=== PATIENT | male | born 1955 ===

== ENCOUNTER 2018-08-12 10:16 | Inpatient (IN) | payer MEDICARE ==
[2018-08-12 10:17] VITALS: BMI 41.9
[2018-08-12] MEDS ORDERED: Albuterol-Ipratrop 3 mg / 0.5 (3 ml) UD IH STA ×3 (10:38→10:39)
[2018-08-12] MEDS ORDERED: Albuterol-Ipratrop 3 mg / 0.5 (3 ml) UD ONE ×2 (10:39→10:53)
--- NOTE | 2018-08-12 10:42 | ED PDOC ---
HPI: CCC, URI, Sore Throat Time Seen by Provider: 08/12/18 10:33 Chief Complaint (Nursing): Cough, Cold, Congestion History Per: Patient Onset/Duration Of Symptoms: Days (3) Current Symptoms Are (Timing): Still Present Associated Symptoms: Chills, Cough. denies: Sputum Severity: Moderate Additional Complaint(s): Non productive cough assoc with congestion, body aches and SOB x 3 days. Has had chills but has not taken temp. Chest pain when coughing. Past Medical History Vital Signs: Last Vital Signs Temp 99.3 F 08/12/18 10:26 Pulse 104 H 08/12/18 10:26 Resp 21 08/12/18 10:26 BP 91/51 L 08/12/18 10:26 Pulse Ox - Medical History PMH: Arthritis, Depression, Diabetes, HTN Denies: Chronic Kidney Disease - Family History Family History: States: Unknown Family Hx - Home Medications Home Medications: Ambulatory Orders Medication Instructions Recorded Aspirin [Ecotrin] 81 mg PO DAILY 08/12/18 Divalproex [Depakote Sprinkles] 125 mg PO DAILY 08/12/18 Ergocalciferol (Vitamin D2) 50,000 unit PO QWK 08/12/18 [Vitamin D2] Furosemide [Lasix] 40 mg PO DAILY 08/12/18 Lisinopril [Zestril] 20 mg PO DAILY 08/12/18 MetFORMIN [glucoPHAGE] 1,000 mg PO BID 08/12/18 Potassium Chloride [K-Dur 20 mEq 20 meq PO DAILY 08/12/18 ER Tab] Rosuvastatin Calcium [Crestor] 10 mg PO HS 08/12/18 SITagliptin [Januvia] 100 mg PO DAILY 08/12/18 Temazepam [Restoril] 30 mg PO HS 08/12/18 Trazodone HCl 150 mg PO HS 08/12/18 amLODIPine [Norvasc] 5 mg PO DAILY 08/12/18 busPIRone [Buspar] 5 mg PO DAILY 08/12/18 clonazePAM [Klonopin] 1.5 mg PO HS 08/12/18 - Allergies Allergies/Adverse Reactions: Allergies Allergy/AdvReac Type Severity Reaction Status Date / Time No Known Allergies Allergy Verified 08/12/18 10:30 Review of Systems ROS Statement: Except As Marked, All Systems Reviewed And Found Negative Constitutional: Positive for: Chills, Malaise Cardiovascular: Positive for: Chest Pain Respiratory: Positive for: Cough, Shortness of Breath, Pleuritic Pain Physical Exam - Reviewed Nursing Documentation Reviewed: Yes Vital Signs Reviewed: Yes - Physical Exam Appears: Positive for: Non-toxic, No Acute Distress Head Exam: Positive for: ATRAUMATIC, NORMAL INSPECTION, NORMOCEPHALIC Skin: Positive for: Normal Color, Warm, DRY Eye Exam: Positive for: EOMI, Normal appearance, PERRL ENT: Positive for: Normal ENT Inspection Neck: Positive for: Normal, Painless ROM Cardiovascular/Chest: Positive for: Regular Rate, Rhythm Respiratory: Positive for: Decreased Breath Sounds, Rhonchi, Wheezing. Negative for: Respiratory Distress Gastrointestinal/Abdominal: Positive for: Normal Exam, Soft Back: Positive for: Normal Inspection Extremity: Positive for: Normal ROM Neurologic/Psych: Positive for: Alert, Oriented - Progress Re-evaluation Time: 11:43 Condition: Improved (Placed on [place] with O2 sat 94-95%) - Critical Care Total Time (In Min): 30 Documented Critical Care: Time excludes all time spent performint seperately billable procedures Medical Decision Making Medical Decision Making: Discussed with Dr. Manzano, Reveiwed xray and clinical status. Can be admitted to telemetry and followed there. Disposition - Clinical Impression Clinical Impression: Pneumonia, Sepsis, Respiratory failure - Patient ED Disposition Is Patient to be Admitted: Yes - Disposition Disposition Time: 11:41 Condition: FAIR Forms: [facility] (Macedonian) - Pt Status Changed To: Hospital Disposition Of: Inpatient - Admit Certification Admit to Inpatient:: After my assessment, the patient will require hospitalization for at least two midnights. This is because of the severity of symptoms shown, intensity of services needed, and/or the medical risk in this patient being treated as an outpatient. - POA Present On Arrival: None
[2018-08-12 11:14] LABS: ABG ALLEN TEST YES; ARTERIAL BLOOD GAS HCO3 23.7 mmol/L (21-28); ARTERIAL BLOOD GAS O2 SAT 87.9 % (95-98); ARTERIAL BLOOD GAS PCO2 72 mm/Hg (35-45); ARTERIAL BLOOD GAS PH 7.21 (7.35-7.45); ARTERIAL BLOOD GAS PO2 52 mm/Hg (80-100)
--- NOTE | 2018-08-12 11:16 | RAD ---
Date of service: 08/12/2018 HISTORY: cough COMPARISON: No prior. FINDINGS: LUNGS: 07/15/2017 extensive left perihilar/basilar and right basilar opacities. Nonspecific. Possible pneumonia or pulmonary edema. PLEURA: No significant pleural effusion identified, no pneumothorax apparent. CARDIOVASCULAR: No aortic atherosclerotic calcification present. Normal cardiac size. No pulmonary vascular congestion. OSSEOUS STRUCTURES: No significant abnormalities. VISUALIZED UPPER ABDOMEN: Normal. OTHER FINDINGS: None. IMPRESSION: Bilateral opacities, nonspecific. Possible pneumonia. Rule out pulmonary edema. Follow-up advised.
[2018-08-12] MEDS ORDERED: Piperacillin/Tazobact 3.375 GM in Sodium Chloride 0.9% 100 ML IVPB STA (11:17)
[2018-08-12] MEDS ORDERED: Sodium Chloride 0.9% 1,000 ML IV STA (11:18)
[2018-08-12] MEDS ORDERED: Vancomycin 1 g Inj ONE (11:22)
[2018-08-12 11:28] LABS: VENOUS BLOOD GAS BASE EXCESS -1.1 mmol/L (0.0-2.0); VENOUS BLOOD GAS PCO2 74 mmHg (40-60); VENOUS BLOOD GAS PO2 48 mm/Hg (30-55)
[2018-08-12 11:29] LABS: BASO % 0.3 % (0.0-2.0); LYMPH # 0.9 K/uL (1.0-4.3); LYMPH % 5.4 % (20.0-40.0); MEAN CELL VOLUME 91.3 fl (80.0-94.0); MEAN CORPUSCULAR HEMOGLOBIN 28.3 pg (27.0-31.0); MEAN PLATELET VOLUME 8.3 fl (7.2-11.7); MONO # 1.5 K/uL (0.0-0.8); MONO % 9.4 % (0.0-10.0); NEUT # 13.7 K/uL (1.8-7.0); NEUT % 84.9 % (50.0-75.0); NRBC % 0.3 % (0.0-0.0); PLATELET COUNT 191 K/uL (130-400); RBC 5.29 Mil/uL (4.40-5.90); RED CELL DISTRIBUTION WIDTH 15.7 % (11.5-14.5); WHITE BLOOD COUNT 16.1 K/uL (4.8-10.8)
--- NOTE | 2018-08-12 11:36 | CARD ---
APPROVED REPORT Date of service: 08/12/2018 EKG Measurement Heart [id number] <Conclusion> Sinus tachycardia Otherwise normal ECG
[2018-08-12 11:43] LABS: ALBUMIN 3.9 g/dL (3.5-5.0); CALCIUM 8.9 mg/dL (8.4-10.2)
--- NOTE | 2018-08-12 12:08 | CP.PCM.HP ---
<Jose Bello - Last Filed: 08/12/18 16:05> History of Present Illness - History of Present Illness History of Present Illness: CC: Cough and weakness 63 Y/O Male with PMHx of HTN, T2DM, Obesity, Depression, Arthritis and CKD. Most of the history is obtained with the help of the patient's grandson and next of dolores due to the patient being on BiPAP and SOB. Patient presented to the ED with c/o cough, weakness, body aches, sujective fever with chills, and difficulty breathing for approximately 3 days. ROS: 12 point system reviwed and found unremarkable except as per HPI. PMD: Dr Kraft. PMHx: HTN, Obesity, CKD, DM, Arthritis. FMHx: Alzheimer's mother and sister PSHx: Knee surgery SocHx: Former Smoker quit 15 years ago, drinks beer every weekend, denies drug use. Next of Dolores: Grandson Rome Cramer [phone] ED Course: VS on presentation BP 91/51, HR 104, T 99.3, O2 Sat 80 to 84, RR 27 Labs: WBC 16.1, Bands % 4, Chem- Creat 1.8 GFR 38, BS 170, ProBNP 3180 ABG: pH 7.2, pCO2- 74, Ox 82.4. EKG: Sinus Tach CXR: b/l opacities IVF NS given in ED BC x 2 done in ED Vanco 1G IV and Zosyn 3.375 mg IVPB BiPAP/CiPAP treatment Duoneb txRx Present on Admission - Present on Admission Any Indicators Present on Admission: No History of DVT/PE: No History of Uncontrolled Diabetes: No Urinary Catheter: No Decubitus Ulcer Present: No Past Patient History - Past Medical History & Family History Past Medical History?: Yes - Past Social History Smoking Status: Never Smoked - CARDIAC Hx Hypertension: Yes - PULMONARY Hx Respiratory Disorders: No - NEUROLOGICAL Hx Neurological Disorder: No - HEENT Hx HEENT Problems: No - RENAL Hx Chronic Kidney Disease: No - ENDOCRINE/METABOLIC Hx Endocrine Disorders: Yes Hx Diabetes Mellitus Type 2: Yes - HEMATOLOGICAL/ONCOLOGICAL Hx Blood Disorders: No - INTEGUMENTARY Hx Dermatological Problems: No - MUSCULOSKELETAL/RHEUMATOLOGICAL Hx Arthritis: Yes - GASTROINTESTINAL Hx Gastrointestinal Disorders: Yes Other/Comment: HEARTBURN - GENITOURINARY/GYNECOLOGICAL Hx Genitourinary Disorders: No - PSYCHIATRIC Hx Depression: Yes - SURGICAL HISTORY Hx Surgeries: Yes Hx Joint Replacement: Yes (right total knee replacement 06/30) Other/Comment: VERICOSE VEIN RIGHT LEG 1986 .ELBOW LEFT - ANESTHESIA Hx Anesthesia: Yes Hx Anesthesia Reactions: No Hx Malignant Hyperthermia: No Meds Allergies/Adverse Reactions: Allergies Allergy/AdvReac Type Severity Reaction Status Date / Time No Known Allergies Allergy Verified 08/12/18 10:30 Physical Exam - Constitutional Appears: In Acute Distress - Head Exam Head Exam: ATRAUMATIC, NORMOCEPHALIC - Eye Exam Eye Exam: EOMI, PERRL - ENT Exam ENT Exam: Mucous Membranes Moist - Respiratory Exam Respiratory Exam: Decreased Breath Sounds, Wheezes - Cardiovascular Exam Cardiovascular Exam: RRR, +S1, +S2 - GI/Abdominal Exam GI & Abdominal Exam: Distended, Normal Bowel Sounds - Extremities Exam Extremities exam: Positive for: pedal edema - Neurological Exam Neurological exam: Alert, CN II-XII Intact - Psychiatric Exam Psychiatric exam: Normal Affect - Skin Skin Exam: Normal Color, Warm Results - Vital Signs Recent Vital Signs: Last Vital Signs Temp 99.3 F 08/12/18 10:26 Pulse 98 H 08/12/18 11:33 Resp 27 H 08/12/18 11:33 BP 125/65 08/12/18 10:40 Pulse Ox 94 L 08/12/18 11:33 - Labs Result Diagrams: 08/12/18 11:20 08/12/18 11:20 Labs: Laboratory Results - last 24 hr 08/12/18 08/12/18 08/12/18 11:00 11:05 11:20 WBC RBC Hgb Hct MCV MCH MCHC RDW Plt Count MPV Neut % (Auto) Lymph % (Auto) Morrow % (Auto) Eos % (Auto) Baso % (Auto) Neut # (Auto) Lymph # (Auto) Morrow # (Auto) Eos # (Auto) Baso # (Auto) pCO2 72 H* pO2 48 52 L HCO3 23.7 ABG pH 7.21 L ABG Total CO2 31.0 H ABG O2 Saturation 87.9 L ABG Base Excess -0.9 Harpreet Test Yes ABG Potassium 4.1 VBG pH 7.20 L VBG pCO2 74 H* VBG HCO3 23.4 VBG Total CO2 31.2 H VBG O2 Sat (Calc) 82.4 H VBG Base Excess -1.1 L VBG Potassium 4.5 A-a O2 Difference 571.0 Sodium 130.0 L 130.0 L 136 Chloride 95.0 L 95.0 L 97 L Glucose 178 H 169 H Lactate 2.8 H 2.1 FiO2 100.0 100.0 Crit Value Called To Abdullahi Roque Crit Value Called By Ellie salas salon shampoo assistant Ellie salon shampoo assistant Crit Value Read Back Y Y Blood Gas Notified Time 1127 1114 Potassium 4.7 Carbon Dioxide 27 Anion Gap 17 BUN 18 Creatinine 1.8 H Est GFR ( Amer) 46 Est GFR (Non-Af Amer) 38 Random Glucose 170 H Calcium 8.9 Total Bilirubin 0.7 AST 167 H D ALT 74 H D Alkaline Phosphatase 72 NT-Pro-B Natriuret Pep 3180 H Total Protein 7.7 Albumin 3.9 Globulin 3.8 Albumin/Globulin Ratio 1.0 Arterial Blood Potassium 4.1 Venous Blood Potassium 4.5 Influenza Typ A,B (EIA) 08/12/18 08/12/18 11:20 11:20 WBC 16.1 H D RBC 5.29 Hgb 15.0 D Hct 48.3 MCV 91.3 D MCH 28.3 MCHC 31.0 L RDW 15.7 H Plt Count 191 D MPV 8.3 Neut % (Auto) 84.9 H Lymph % (Auto) 5.4 L Morrow % (Auto) 9.4 Eos % (Auto) 0.0 Baso % (Auto) 0.3 Neut # (Auto) 13.7 H Lymph # (Auto) 0.9 L Morrow # (Auto) 1.5 H Eos # (Auto) 0.0 Baso # (Auto) 0.0 pCO2 pO2 HCO3 ABG pH ABG Total CO2 ABG O2 Saturation ABG Base Excess Harpreet Test ABG Potassium VBG pH VBG pCO2 VBG HCO3 VBG Total CO2 VBG O2 Sat (Calc) VBG Base Excess VBG Potassium A-a O2 Difference Sodium Chloride Glucose Lactate FiO2 Crit Value Called To Crit Value Called By Crit Value Read Back Blood Gas Notified Time Potassium Carbon Dioxide Anion Gap BUN Creatinine Est GFR ( Amer) Est GFR (Non-Af Amer) Random Glucose Calcium Total Bilirubin AST ALT Alkaline Phosphatase NT-Pro-B Natriuret Pep Total Protein Albumin Globulin Albumin/Globulin Ratio Arterial Blood Potassium Venous Blood Potassium Influenza Typ A,B (EIA) Negative for flu a/b Assessment & Plan - Assessment and Plan (Free Text) Assessment: 63 Y/O Male with PMHx of HTN, T2DM, Obesity, Depression, Arthritis and CKD, presenting to the ED with c/o cough, weakness and SOB for approximately 3 days. Patient was found in the ED to have a leukocytois with bandemia, CXR with b/l infiltrate opacities, hypercapnia and hypoxemia and is admitted with Respiratory failure secondary to PNA. Plan: #. Hypoxic-Hypercapnic Respiratory Failure secondary to PNA - Admit to Tele -CXR done - BiPAP setting IPAP 12, EPAP 6, FIO2 100, Rate 14 - ABG in AM - CBC, CMP in AM - C/w Zosym 3.375 Q6h IV - C/W Vanco IV - Pulmonology consult, Dr Hendricks, Recommendations appreciated - Duoneb unit dose Rx Neb Q6h - Solu-medrol 40 IV Q6 #. Sepsis secondary to PNA - Leukocytosis : WBC 16.1, Bands % 4 - BP 91/51 HR 104 on presentation - CXR done - BC x 2 done, pending results - Sputum culture ordered, f/u results - Procalcitonin, f/u results - Legionella unrine Ag, f/u results - CBC in AM, f/u - c/w Antibx: Zosyn, VAnco - Vanco level in AM #. T2DM -Diabetid diet -HbA1C in AM, F/u -Metformin: Stopped, Creat 1.8 GFR 38 -Januvia:hold -Correction Scale with Lispro insulin ACHS as per protocol #HTN -Norvasc, Lisinopril, LAsix on hold due to hypotension at this time -Echo f/u results #.Obesity -BMI 43.6 #. Renal Injury -Creat 1.8 -Unclear Chronic vs Acute -F/u Chem7 in AM #.Elevated LFTs - AST 167 - ALT 74 -Most likely related to Fatty Liver D vs ETOH abuse -F/u CMP #Depression -c/w Trazodone -Buspar-Hold -Temazepam 30-Hold DVT Prphylaxis Heparin 5000U SC Q12h Code Status Full Code <Resendez,Randell D - Last Filed: 08/12/18 18:39> Results - Vital Signs Recent Vital Signs: Last Vital Signs Temp 98.7 F 08/12/18 15:48 Pulse 96 H 08/12/18 17:00 Resp 18 08/12/18 15:48 BP 97/67 L 08/12/18 15:48 Pulse Ox 95 08/12/18 15:48 - Labs Result Diagrams: 08/12/18 11:20 08/12/18 11:20 Labs: Laboratory Results - last 24 hr 08/12/18 08/12/18 08/12/18 11:00 11:05 11:20 WBC RBC Hgb Hct MCV MCH MCHC RDW Plt Count MPV Neut % (Auto) Lymph % (Auto) Morrow % (Auto) Eos % (Auto) Baso % (Auto) Neut # (Auto) Lymph # (Auto) Morrow # (Auto) Eos # (Auto) Baso # (Auto) Neutrophils % (Manual) Band Neutrophils % Lymphocytes % (Manual) Monocytes % (Manual) Platelet Estimate Anisocytosis (manual) pCO2 72 H* pO2 48 52 L HCO3 23.7 ABG pH 7.21 L ABG Total CO2 31.0 H ABG O2 Saturation 87.9 L ABG Base Excess -0.9 Harpreet Test Yes ABG Potassium 4.1 VBG pH 7.20 L VBG pCO2 74 H* VBG HCO3 23.4 VBG Total CO2 31.2 H VBG O2 Sat (Calc) 82.4 H VBG Base Excess -1.1 L VBG Potassium 4.5 A-a O2 Difference 571.0 Sodium 130.0 L 130.0 L 136 Chloride 95.0 L 95.0 L 97 L Glucose 178 H 169 H Lactate 2.8 H 2.1 FiO2 100.0 100.0 Crit Value Called To Abdullahi Roque Crit Value Called By Ellie salas salon shampoo assistant Ellie salon shampoo assistant Crit Value Read Back Y Y Blood Gas Notified Time 1127 1114 Potassium 4.7 Carbon Dioxide 27 Anion Gap 17 BUN 18 Creatinine 1.8 H Est GFR ( Amer) 46 Est GFR (Non-Af Amer) 38 Random Glucose 170 H Calcium 8.9 Total Bilirubin 0.7 AST 167 H D ALT 74 H D Alkaline Phosphatase 72 NT-Pro-B Natriuret Pep 3180 H Total Protein 7.7 Albumin 3.9 Globulin 3.8 Albumin/Globulin Ratio 1.0 Arterial Blood Potassium 4.1 Venous Blood Potassium 4.5 Influenza Typ A,B (EIA) 08/12/18 08/12/18 11:20 11:20 WBC 16.1 H D RBC 5.29 Hgb 15.0 D Hct 48.3 MCV 91.3 D MCH 28.3 MCHC 31.0 L RDW 15.7 H Plt Count 191 D MPV 8.3 Neut % (Auto) 84.9 H Lymph % (Auto) 5.4 L Morrow % (Auto) 9.4 Eos % (Auto) 0.0 Baso % (Auto) 0.3 Neut # (Auto) 13.7 H Lymph # (Auto) 0.9 L [place]row # (Auto) 1.5 H Eos # (Auto) 0.0 Baso # (Auto) 0.0 Neutrophils % (Manual) 78 H Band Neutrophils % 4 H Lymphocytes % (Manual) 7 L Monocytes % (Manual) 11 H Platelet Estimate Normal Anisocytosis (manual) Slight pCO2 pO2 HCO3 ABG pH ABG Total CO2 ABG O2 Saturation ABG Base Excess Harpreet Test ABG Potassium VBG pH VBG pCO2 VBG HCO3 VBG Total CO2 VBG O2 Sat (Calc) VBG Base Excess VBG Potassium A-a O2 Difference Sodium Chloride Glucose Lactate FiO2 Crit Value Called To Crit Value Called By Crit Value Read Back Blood Gas Notified Time Potassium Carbon Dioxide Anion Gap BUN Creatinine Est GFR ( Amer) Est GFR (Non-Af Amer) Random Glucose Calcium Total Bilirubin AST ALT Alkaline Phosphatase NT-Pro-B Natriuret Pep Total Protein Albumin Globulin Albumin/Globulin Ratio Arterial Blood Potassium Venous Blood Potassium Influenza Typ A,B (EIA) Negative for flu a/b Attending/Attestation - Attestation I have personally seen and examined this patient.: Yes I have fully participated in the care of the patient.: Yes I have reviewed all pertinent clinical information: Yes Notes (Text): 08/12/18 18:38 Patient seen and examined with resident. Case discussed and agreed with assessment and plan of management.
[2018-08-12] MEDS ORDERED: Sodium Chloride 3% for Inhalation 4 ML VIAL.NEB IH PRN (12:12)
[2018-08-12 12:15] LABS: BANDS 4 % (0-2); LYMPHOCYTE 7 % (20-50); MONOCYTE 11 % (0-10); NEUTROPHIL 78 % (42-75); TOTAL CELLS COUNTED 100
[2018-08-12 12:16] LABS: ANISOCYTOSIS SLIGHT; PLATELET ESTIMATE NORMAL (NORMAL)
[2018-08-12] MEDS ORDERED: Dextrose 50% SYRINGE Inj (50 ml) IV PRN (12:27)
[2018-08-12] MEDS ORDERED: Glucagon Recombinant 1 mg Inj IM PRN (12:27)
[2018-08-12] MEDS ORDERED: Piperacillin/Tazobact 3.375 gm Inj IVPB ONE (13:03)
[2018-08-12] MEDS: Albuterol-Ipratrop 3 mg / 0.5 (3 ml) UD INH SCH ×2 (15:42→19:03)
[2018-08-12] MEDS: Piperacillin/Tazobact 3.375 GM in Sodium Chloride 0.9% 100 ML IVPB SCH ×3 (16:03→23:50)
[2018-08-12] MEDS ORDERED: methylPREDNISolone 40 MG in Sodium Chloride 0.9% 50 ML IVPB SCH (17:00)
[2018-08-12] MEDS: Insulin Lispro (humaLOG) 100 Units/ml Inj SC SCH ×2 (18:33→21:36)
[2018-08-12] MEDS: MethylPREDNISolone 40 mg Vial IVP SCH (18:36)
[2018-08-13] MEDS: MethylPREDNISolone 40 mg Vial IVP SCH ×3 (00:04→17:22)
[2018-08-13 05:29] LABS: BASO % 0.1 % (0.0-2.0); HEMOGLOBIN 14.8 g/dL (12.0-18.0); LYMPH # 0.7 K/uL (1.0-4.3); LYMPH % 3.9 % (20.0-40.0); MEAN CELL VOLUME 91.1 fl (80.0-94.0); MEAN CORPUSCULAR HEMOGLOBIN 28.3 pg (27.0-31.0); MEAN CORPUSCULAR HGB CONC 31.1 g/dL (33.0-37.0); MONO # 0.9 K/uL (0.0-0.8); MONO % 5.2 % (0.0-10.0); NEUT # 16.2 K/uL (1.8-7.0); NEUT % 90.8 % (50.0-75.0); NRBC % 0.6 % (0.0-0.0); PLATELET COUNT 166 K/uL (130-400); RBC 5.21 Mil/uL (4.40-5.90); RED CELL DISTRIBUTION WIDTH 15.8 % (11.5-14.5); WHITE BLOOD COUNT 17.9 K/uL (4.8-10.8)
[2018-08-13] MEDS: Piperacillin/Tazobact 3.375 GM in Sodium Chloride 0.9% 100 ML IVPB SCH ×3 (06:06→18:44)
[2018-08-13 06:30] LABS: BANDS 7 % (0-2); LYMPHOCYTE 4 % (20-50); MONOCYTE 2 % (0-10); NEUTROPHIL 87 % (42-75); PLATELET ESTIMATE NORMAL (NORMAL); TOTAL CELLS COUNTED 100
[2018-08-13] MEDS: Insulin Lispro (humaLOG) 100 Units/ml Inj SC SCH ×4 (08:00→22:23)
[2018-08-13] MEDS: Albuterol-Ipratrop 3 mg / 0.5 (3 ml) UD INH SCH ×6 (08:01→23:18)
[2018-08-13 08:26] LABS: ABG ALLEN TEST YES; ARTERIAL BLOOD GAS HCO3 24.4 mmol/L (21-28); ARTERIAL BLOOD GAS O2 SAT 99.8 % (95-98); ARTERIAL BLOOD GAS PCO2 77 mm/Hg (35-45); ARTERIAL BLOOD GAS PO2 162 mm/Hg (80-100); ARTERIAL BLOOD GAS TCO2 32.5 mmol/L (22-28)
[2018-08-13] MEDS ORDERED: Potassium Chloride 20 mEq ER Tab PO SCH (09:00)
[2018-08-13] MEDS ORDERED: Albuterol-Ipratrop 3 mg / 0.5 (3 ml) UD INH PRN (09:23)
--- NOTE | 2018-08-13 09:28 | CP.PCM.PN ---
<Vernon MccartneyJose - Last Filed: 08/13/18 10:57> Subjective - Date & Time of Evaluation Date of Evaluation: 08/13/18 Time of Evaluation: 08:55 - Subjective Subjective: Patient seem this morning, appears more alert today and is AAOX3, sitting in his bed using BiPAP/CiPAP machine, nursing reports patient gets SOB when off Cipap, afebrile, denies chest pain. Objective - Vital Signs/Intake and Output Vital Signs (last 24 hours): Temp Pulse Resp BP Pulse Ox 98 F 95 H 20 131/77 99 08/13/18 04:41 08/13/18 07:31 08/13/18 04:41 08/13/18 04:41 08/13/18 04:41 - Medications Medications: Current Medications Albuterol/Ipratropium (Duoneb 3 Mg/0.5 Mg (3 Ml) Ud) 3 ml INH Q4H AYLA Albuterol/Ipratropium (Duoneb 3 Mg/0.5 Mg (3 Ml) Ud) 3 ml INH RQ2 PRN PRN Reason: Shortness of Breath Dextrose (Dextrose 50% Inj) 0 ml IV STAT PRN; Protocol PRN Reason: Hypoglycemia Protocol Dextrose (Glutose 15) 0 gm PO ONCE PRN; Protocol PRN Reason: Hypoglycemia Protocol Ergocalciferol (Drisdol 50,000 Intl Units Cap) 1 cap PO SUN AYLA Furosemide (Lasix) 60 mg IV Q12 AYLA Glucagon (Glucagen Diagnostic Kit) 0 mg IM STAT PRN; Protocol PRN Reason: Hypoglycemia Protocol Heparin Sodium (Porcine) (Heparin) 5,000 units SC Q12 AYLA; Protocol Last Admin: 08/12/18 21:05 Dose: 5,000 units Piperacillin Sod/Tazobactam (Sod 3.375 gm/ Sodium Chloride) 100 mls @ 100 mls/hr IVPB Q6H AYLA; Protocol Last Admin: 08/13/18 06:06 Dose: 100 mls/hr Vancomycin HCl 1 gm/ Sodium (Chloride) 250 mls @ 166.667 mls/hr IVPB DAILY AYLA; Protocol Insulin Human Lispro (Humalog) 0 units SC ACHS AYLA; Protocol Last Admin: 08/12/18 21:36 Dose: Not Given Methylprednisolone (Solu-Medrol) 40 mg IVP Q8 AYLA Last Admin: 08/13/18 00:04 Dose: 40 mg Trazodone HCl (Desyrel) 150 mg PO HS [facility] Last Admin: 08/12/18 21:05 Dose: 150 mg - Labs Labs: 08/13/18 04:20 08/12/18 11:20 - Constitutional Appears: No Acute Distress - Head Exam Head Exam: ATRAUMATIC, NORMOCEPHALIC - Eye Exam Eye Exam: EOMI - ENT Exam ENT Exam: Mucous Membranes Moist - Respiratory Exam Respiratory Exam: Decreased Breath Sounds, Wheezes - Cardiovascular Exam Cardiovascular Exam: RRR, +S1, +S2 - Extremities Exam Extremities Exam: Pedal Edema - Neurological Exam Neurological Exam: Alert, Awake, Oriented x3 - Psychiatric Exam Psychiatric exam: Normal Mood - Skin Skin Exam: Normal Color, Warm Assessment and Plan - Assessment and Plan (Free Text) Assessment: Assessment: 63 Y/O Male with PMHx of HTN, T2DM, Obesity, Depression, Arthritis and CKD, presenting to the ED with c/o cough, weakness and SOB for approximately 3 days. Patient was found in the ED to have a leukocytois with bandemia, CXR with b/l infiltrate opacities, hypercapnia and hypoxemia and is admitted with Respiratory failure secondary to PNA. Plan: #. Hypoxic-Hypercapnic Respiratory Failure secondary to PNA - Admit to Tele - CXR done - BiPAP setting IPAP 12, EPAP 6, FIO2 75, Rate 14 - ABG f/u results - CBC, CMP in AM - C/w Zosym 3.375 Q6h IV - C/W Vanco IV - Pulmonology consult, Dr Hnedricks, Recommendations appreciated - Duoneb unit dose Rx Neb Q4h + 2h PRN - Solu-medrol 40 IV Q8 #. Sepsis secondary to PNA - Leukocytosis : WBC 17.9, Bands % 7 - BP 91/51 HR 104 on presentation - CXR done - BC x 2 done, pending results - Sputum culture ordered, f/u results - Procalcitonin, 1.11 consistent with bacterial PNA - Legionella unrine Ag, f/u results - CBC in AM, f/u - c/w Antibx: Zosyn, VAnco #. T2DM -Diabetid diet -HbA1C in AM, pending -Metformin: Stopped, Creat 1.8 GFR 38 -Januvia:hold -Correction Scale with Lispro insulin ACHS as per protocol #HTN -Norvasc, Lisinopril on hold due to hypotension at this time -Echo f/u results #.Obesity -BMI 43.6 #. Renal Injury -Creat 1.8 -Unclear Chronic vs Acute -F/u Chem7 in AM #.Elevated LFTs - AST 167 - ALT 74 -Most likely related to Fatty Liver D vs ETOH abuse -F/u CMP #Depression -c/w Trazodone -Buspar-Hold -Temazepam 30-Hold DVT Prphylaxis Heparin 5000U SC Q12h Code Status Full Code <Miranda Dash - Last Filed: 08/21/18 10:18> Objective - Vital Signs/Intake and Output Vital Signs (last 24 hours): Temp Pulse Resp BP Pulse Ox 97.9 F 65 18 133/79 97 08/19/18 08:02 08/19/18 08:40 08/19/18 08:02 08/19/18 08:40 08/19/18 08:02 - Labs Labs: 08/18/18 04:25 08/19/18 04:25 Attending/Attestation - Attestation I have personally seen and examined this patient.: Yes I have fully participated in the care of the patient.: Yes I have reviewed all pertinent clinical information, including history, physical exam and plan: Yes Notes (Text): 08/21/18 10:18 Seen, examined, and discussed with resident. Agree with findings and plan as above.
[2018-08-13 11:27] LABS: ALBUMIN 3.9 g/dL (3.5-5.0); ALT/SGPT 87 U/L (21-72); AST/SGOT 90 U/L (17-59); BLOOD UREA NITROGEN 19 mg/dl (9-20); CALCIUM 9.1 mg/dL (8.4-10.2); GFR NON-AFRICAN AMERICAN > 60
--- NOTE | 2018-08-13 11:39 | CARD ---
APPROVED REPORT Date of service: 08/13/2018 EXAM: Two-dimensional and M-mode echocardiogram with Doppler and color Doppler. Other Information Quality : GoodRhythm : Tachycardia INDICATION Elevated PRO BNP 2D DIMENSIONS IVSd1.38 (0.7-1.1cm)LVDd5.21 (3.9-5.9cm) LVOT Diameter2.56 (1.8-2.4cm)PWd1.21 (0.7-1.1cm) IVSs1.93 (0.8-1.2cm)LVDs3.37 (2.5-4.0cm) FS (%) 35.3 %PWs1.51 (0.8-1.2cm) M-Mode DIMENSIONS Left Atrium (MM)4.53 (2.5-4.0cm)IVSd1.13 (0.7-1.1cm) Aortic Root3.21 (2.2-3.7cm)LVDd5.82 (4.0-5.6cm) Aortic Cusp Exc.2.32 (1.5-2.0cm)PWd1.22 (0.7-1.1cm) IVSs1.65 cmFS (%) 34 % LVDs3.84 (2.0-3.8cm)PWs1.46 cm Aortic Valve AoV Peak Etzlgwvp913.0cm/sAoV VTI27.1cmAO Peak GR.12mmHg LVOT Peak Wnljvpak911.3cm/sLVOT VTI23.91cmAO Mean GR.7mmHg DELPHINE (VMAX)1.21un0TCZ (VTI)2.00cm2 Mitral Valve MV E Vlcydmpn18.5cm/sMV DECEL [id number] A Yixwbtbn197.7cm/s MV HJE97pqR/A ratio0.8MVA (PHT)3.75cm2 TDI E/Lateral E'0.0E/Medial E'0.0 Pulmonary Valve PV Peak Kaxnrnbl685.7cm/s LEFT VENTRICLE The left ventricle is normal size. There is mild concentric left ventricular hypertrophy. The left ventricular systolic function is normal. The estimated ejection fraction is 55-60% No regional wall motion abnormalities noted.. Transmitral Doppler flow pattern is Grade I-abnormal relaxation pattern. No left ventricle thrombus noted on this study. There is no ventricular septal defect visualized. There is no left ventricular aneurysm. There is no mass noted in the left ventricle. RIGHT VENTRICLE The right ventricle is normal size. There is normal right ventricular wall thickness. The right ventricular systolic function is normal. ATRIA The left atrium is mildly dilated. The right atrium size is normal. The interatrial septum is intact with no evidence for an atrial septal defect. AORTIC VALVE The aortic valve is normal in structure. No aortic regurgitation is present. There is no aortic valvular stenosis. There is no aortic valvular vegetation. MITRAL VALVE The mitral valve is normal in structure. There is no evidence of mitral valve prolapse. There is no mitral valve stenosis. There is no mitral valve regurgitation noted. TRICUSPID VALVE The tricuspid valve is normal in structure. There is mild tricuspid valve regurgitation noted. RVSP is calculated at 26 mm Hg. There is no tricuspid valve prolapse or vegetation. There is no tricuspid valve stenosis. PULMONIC VALVE The pulmonary valve is normal in structure. There is no pulmonic valvular regurgitation. There is no pulmonic valvular stenosis. GREAT VESSELS The aortic root is normal in size. The ascending aorta is normal in size. The pulmonary artery is normal. The IVC is normal in size and collapses >50% with inspiration. PERICARDIAL EFFUSION There is no pericardial effusion. There is no pleural effusion. <Conclusion> There is mild concentric left ventricular hypertrophy. The estimated ejection fraction is 55-60% Transmitral Doppler flow pattern is Grade I-abnormal relaxation pattern. The left atrium is mildly dilated. There is mild tricuspid valve regurgitation noted. RVSP is calculated at 26 mm Hg.
[2018-08-13 12:08] LABS: ABG ALLEN TEST YES; ARTERIAL BLOOD GAS HCO3 25.7 mmol/L (21-28); ARTERIAL BLOOD GAS HEMOGLOBIN 15.8 g/dL (11.7-17.4); ARTERIAL BLOOD GAS O2 CAPACITY 21.5 mL/dL (16-24); ARTERIAL BLOOD GAS O2 CONTENT 21.1 ML/dL (15-23); ARTERIAL BLOOD GAS PCO2 68 mm/Hg (35-45); ARTERIAL BLOOD GAS PH 7.26 (7.35-7.45); ARTERIAL BLOOD GAS PO2 91 mm/Hg (80-100); ARTERIAL BLOOD GAS TCO2 32.6 mmol/L (22-28)
--- NOTE | 2018-08-13 23:29 | CON ---
DATE: 08/13/2018 HISTORY OF PRESENT ILLNESS: Mr. Leslie is a 63-year-old male who was referred for pulmonary evaluation. He was admitted under the hospitalist service because of shortness of breath, exercise intolerance, cough for the past 3 days prior to presentation. He also admits to having fever with chills. He indicates that his relative was sick at home, and he indicated that he got sick because of being exposed to them. PAST MEDICAL HISTORY: He has a past medical history of hypertension, type 2 diabetes mellitus, morbid obesity, depression, arthritis, and chronic kidney disease. FAMILY HISTORY: Unrevealing. SOCIAL HISTORY: Socially, he used to smoke, but quit 15 years ago. Does not drink. Does not use drugs. REVIEW OF SYSTEMS: Essentially unremarkable. PHYSICAL EXAMINATION: GENERAL: The patient is alert, oriented, morbidly obese, lying in bed with a BiPAP machine over his face. He appears alert and oriented right now, and able to give some history. VITAL SIGNS: Blood pressure 138/81 with a pulse of 99, respiratory rate is 20. He is afebrile. O2 sat 95% on BiPAP. HEENT: Mouth shows fair hygiene. JVP flat. LUNGS: Fair aeration with dullness at both bases. HEART: Regular. ABDOMEN: Soft, nontender. No organomegaly, but is obese. EXTREMITIES: Showed trace pitting pedal edema. CENTRAL NERVOUS SYSTEM: The patient is alert and oriented. He is in moderate distress because of shortness of breath. LABORATORIES: WBC 17.9, hemoglobin 14.8, platelet count of 166,000. Arterial blood gases on BiPAP 14/8, IPAP 12, EPAP 6, O2 100%, pH 7.2, pCO2 77, pO2 of 162, O2 saturation 99.8. Sodium 138, potassium 4.8, BUN 19, creatinine 0.9, glucose of 237, AST 90, ALT 87. Procalcitonin 1.11 which is elevated. Chest x-ray Is remarkable for bilateral opacities and nonspecific possible pneumonia, rule out pulmonary edema. EKG, sinus tachycardia, otherwise normal. Echocardiogram, mild concentric LVH, ejection fraction 55-60%. IMPRESSION: Clinical picture is compatible with acute respiratory failure, probably secondary to superimposed pneumonia and obesity hypoventilation syndrome. The patient also has a history of hypertension, type 2 diabetes, depression, arthritis, and chronic kidney disease. PLAN: The plan is to continue therapy as ordered. Obtain sputum for Gram stain and cultures. White cultures including blood, we would obtain Legionella mycoplasma titers, continue BiPAP therapy with oxygen. We would continue antibiotic therapy, attempt to wean off BiPAP once clinically stable. We will continue to follow with you. Herbert Hendricks MD
[2018-08-14] MEDS: Piperacillin/Tazobact 3.375 GM in Sodium Chloride 0.9% 100 ML IVPB SCH ×4 (00:52→19:03)
[2018-08-14] MEDS: MethylPREDNISolone 40 mg Vial IVP SCH ×2 (00:53→08:25)
[2018-08-14] MEDS: Albuterol-Ipratrop 3 mg / 0.5 (3 ml) UD INH SCH ×5 (03:37→19:09)
[2018-08-14 06:47] LABS: EOS % 0.1 % (0.0-4.0); LYMPH # 0.4 K/uL (1.0-4.3); LYMPH % 2.6 % (20.0-40.0); MEAN CELL VOLUME 89.3 fl (80.0-94.0); MEAN CORPUSCULAR HEMOGLOBIN 28.1 pg (27.0-31.0); MEAN CORPUSCULAR HGB CONC 31.5 g/dL (33.0-37.0); MEAN PLATELET VOLUME 8.1 fl (7.2-11.7); MONO # 1.1 K/uL (0.0-0.8); MONO % 6.7 % (0.0-10.0); NEUT # 15.2 K/uL (1.8-7.0); NEUT % 90.6 % (50.0-75.0); NRBC % 0.6 % (0.0-0.0); PLATELET COUNT 175 K/uL (130-400); RBC 4.98 Mil/uL (4.40-5.90); RED CELL DISTRIBUTION WIDTH 15.8 % (11.5-14.5); WHITE BLOOD COUNT 16.8 K/uL (4.8-10.8)
[2018-08-14 06:58] LABS: BLOOD UREA NITROGEN 18 mg/dl (9-20); CALCIUM 8.6 mg/dL (8.4-10.2); GFR NON-AFRICAN AMERICAN > 60
[2018-08-14] MEDS: Insulin Lispro (humaLOG) 100 Units/ml Inj SC SCH ×4 (08:23→21:43)
--- NOTE | 2018-08-14 08:25 | CP.PCM.PN ---
<Daniel Jo - Last Filed: 08/14/18 09:15> Subjective - Date & Time of Evaluation Date of Evaluation: 08/14/18 Time of Evaluation: 08:25 - Subjective Subjective: pt seen and evaluated at bedside. Overnight events discussed with nurse. Labs reviewed. Pt sitting up in bed, on 4L NC, comfortably. Multiple episodes of BiPap mask removal last night due to pt being uncomfortable. Desaturation to low 80s w/o supplemental O2, which is improvement since yesterday. Pt afebrile. Speaking in full sentences. NAD. Pt reports feeling better overall but still gets SOB w/o supplemental O2. No new complaints/concerns. Objective - Vital Signs/Intake and Output Vital Signs (last 24 hours): Temp Pulse Resp BP Pulse Ox 98.1 F 93 H 18 127/75 83 L 08/14/18 08:13 08/14/18 08:13 08/14/18 08:13 08/14/18 08:13 08/14/18 08:13 - Medications Medications: Current Medications Albuterol/Ipratropium (Duoneb 3 Mg/0.5 Mg (3 Ml) Ud) 3 ml INH RQ2 PRN PRN Reason: Shortness of Breath Albuterol/Ipratropium (Duoneb 3 Mg/0.5 Mg (3 Ml) Ud) 3 ml INH RQ4 [facility] Last Admin: 08/14/18 07:21 Dose: 3 ml Dextrose (Dextrose 50% Inj) 0 ml IV STAT PRN; Protocol PRN Reason: Hypoglycemia Protocol Dextrose (Glutose 15) 0 gm PO ONCE PRN; Protocol PRN Reason: Hypoglycemia Protocol Ergocalciferol (Drisdol 50,000 Intl Units Cap) 1 cap PO SUN [facility] Furosemide (Lasix) 60 mg IVP Q12 [facility] Last Admin: 08/13/18 22:21 Dose: 60 mg Glucagon (Glucagen Diagnostic Kit) 0 mg IM STAT PRN; Protocol PRN Reason: Hypoglycemia Protocol Heparin Sodium (Porcine) (Heparin) 5,000 units SC Q12 [facility]; Protocol Last Admin: 08/14/18 08:25 Dose: 5,000 units Piperacillin Sod/Tazobactam (Sod 3.375 gm/ Sodium Chloride) 100 mls @ 100 mls/hr IVPB Q6H [facility]; Protocol Last Admin: 08/14/18 06:00 Dose: 100 mls/hr Vancomycin HCl 1 gm/ Sodium (Chloride) 250 mls @ 166.667 mls/hr IVPB DAILY [facility]; Protocol Last Admin: 08/13/18 10:02 Dose: 166.667 mls/hr Insulin Human Lispro (Humalog) 0 units SC ACHS [facility]; Protocol Last Admin: 08/14/18 08:23 Dose: 3 units Methylprednisolone (Solu-Medrol) 40 mg IVP Q8 [facility] Last Admin: 08/14/18 08:25 Dose: 40 mg Trazodone HCl (Desyrel) 150 mg PO HS [facility] Last Admin: 08/13/18 22:23 Dose: 150 mg - Labs Labs: 08/14/18 05:15 08/14/18 05:15 - Constitutional Appears: Non-toxic, No Acute Distress - Head Exam Head Exam: ATRAUMATIC, NORMOCEPHALIC - Eye Exam Eye Exam: EOMI. absent: Nystagmus, Scleral icterus Pupil Exam: PERRL - ENT Exam ENT Exam: Mucous Membranes Moist - Neck Exam Neck Exam: Full ROM - Respiratory Exam Respiratory Exam: Decreased Breath Sounds (decreased breath sounds in b/l lower lung mcgee ), Rales (bibasilar rales), Rhonchi, Wheezes (scattered wheezes in b/l lung mcgee). absent: Accessory Muscle Use, Chest Wall Tenderness, Clear to Ausculation Bilateral, Respiratory Distress, Stridor, NORMAL BREATHING PATTERN - Cardiovascular Exam Cardiovascular Exam: REGULAR RHYTHM, RRR, +S1, +S2. absent: Tachycardia, JVD, Rubs, Murmur - GI/Abdominal Exam GI & Abdominal Exam: Soft, Normal Bowel Sounds. absent: Firm, Guarding, Rigid, Tenderness Additional comments: profound truncal obesity - Extremities Exam Extremities Exam: Normal Capillary Refill, Pedal Edema. absent: Calf Tenderness, Tenderness - Neurological Exam Neurological Exam: Alert, Awake, CN II-XII Intact, Oriented x3 - Psychiatric Exam Psychiatric exam: Normal Affect, Normal Mood Assessment and Plan - Assessment and Plan (Free Text) Assessment: 63 y/o male admitted for respiratory acidosis and sepsis due to hypercapnic respiratory failure secondary to b/l pneumonia. Plan: Hypercapnic Respiratory Failure -2/2 to b/l pneumonia, with obesity hypoventilation syndome -improving -BiPAP setting IPAP 12, EPAP 6, FIO2 75, Rate 14 -ABG: PCO2 down to 68, pH improved to 7.33 -Pulmonology consult, Dr Hendricks, Recommendations appreciated -Duonebs Q4H RQID -Duonebs PRN Q2H -Solu-medrol 40 IV Q8 Respiratory Acidosis -improving -Pco2 68 today (77 on 08/13) -pH: 7.33 (7.21 on admission) -c/w BiPaP and supplemental O2 -Pt agreeable to intubation if fails Non-invasive management -f/u ABG Bilateral Pneumonia -improving -ABG shows improvement -afebrile -leukocytosis improving -Procalcitonin: 1.11 -Sputum culture ordered, f/u results -Legionella urine Ag, f/u results -C/w Zosym 3.375 Q6h IV -C/W Vanco IV Sepsis -resolved -lactic acid down to 1.7 NIDDM2 -controlled -HBA1C 6.3 -hold home PO meds -Lispro Correction scale Hypertension -stable -monitor Obesity -BMI 43.6 Transaminemia -f/u AM CMP History of Depression -c/w Trazodone -Buspar-Hold -Temazepam 30-Hold DVT PPx: Heparin 5000U SC Q12h Code Status Full Code <Randell Resendez D - Last Filed: 08/14/18 11:45> Objective - Vital Signs/Intake and Output Vital Signs (last 24 hours): Temp Pulse Resp BP Pulse Ox 98.1 F 93 H 18 127/75 83 L 08/14/18 08:13 08/14/18 08:13 08/14/18 08:13 08/14/18 08:13 08/14/18 08:13 - Medications Medications: Current Medications Albuterol Sulfate (Albuterol 0.083% Inhal Yesenia (2.5 Mg/3 Ml) Ud) 2.5 mg INH RQ4 PRN PRN Reason: Shortness of Breath Albuterol/Ipratropium (Duoneb 3 Mg/0.5 Mg (3 Ml) Ud) 3 ml INH RQID [facility] Dextrose (Dextrose 50% Inj) 0 ml IV STAT PRN; Protocol PRN Reason: Hypoglycemia Protocol Dextrose (Glutose 15) 0 gm PO ONCE PRN; Protocol PRN Reason: Hypoglycemia Protocol Ergocalciferol (Drisdol 50,000 Intl Units Cap) 1 cap PO SUN [facility] Furosemide (Lasix) 40 mg PO DAILY [facility] Glucagon (Glucagen Diagnostic Kit) 0 mg IM STAT PRN; Protocol PRN Reason: Hypoglycemia Protocol Heparin Sodium (Porcine) (Heparin) 5,000 units SC Q12 [facility]; Protocol Last Admin: 08/14/18 08:25 Dose: 5,000 units Piperacillin Sod/Tazobactam (Sod 3.375 gm/ Sodium Chloride) 100 mls @ 100 mls/hr IVPB Q6H [facility]; Protocol Last Admin: 08/14/18 06:00 Dose: 100 mls/hr Vancomycin HCl 1 gm/ Sodium (Chloride) 250 mls @ 166.667 mls/hr IVPB DAILY [facility]; Protocol Last Admin: 08/14/18 08:27 Dose: 166.667 mls/hr Azithromycin 500 mg/ Sodium (Chloride) 250 mls @ 250 mls/hr IVPB DAILY [facility]; Protocol Insulin Human Lispro (Humalog) 0 units SC ACHS [facility]; Protocol Last Admin: 08/14/18 08:23 Dose: 3 units Prednisone (Prednisone Tab) 40 mg PO DAILY [facility] Fluticasone/Salmeterol (Advair Diskus 250/50) 1 puff IH Q12 [facility] Trazodone HCl (Desyrel) 150 mg PO HS [facility] Last Admin: 08/13/18 22:23 Dose: 150 mg - Labs Labs: 08/14/18 05:15 08/14/18 05:15 Attending/Attestation - Attestation I have personally seen and examined this patient.: Yes I have fully participated in the care of the patient.: Yes I have reviewed all pertinent clinical information, including history, physical exam and plan: Yes Notes (Text): 08/14/18 11:40 Patient seen and examined with resident. Case was discussed and agreed with assessment. WBC remained high probably because of steroid and not infection so we will start cutting down on steroid and DC SoluMedrol and start on PO Prednisone. We will also add Advair and Zithromax on the antibiotic regimen.
[2018-08-14 08:55] LABS: ABG ALLEN TEST YES; ARTERIAL BLOOD GAS HCO3 30.2 mmol/L (21-28); ARTERIAL BLOOD GAS O2 SAT 86.5 % (95-98); ARTERIAL BLOOD GAS PCO2 68 mm/Hg (35-45); ARTERIAL BLOOD GAS PH 7.33 (7.35-7.45); ARTERIAL BLOOD GAS PO2 46 mm/Hg (80-100)
--- NOTE | 2018-08-14 10:32 | CP.PCM.PN ---
Subjective - Date & Time of Evaluation Date of Evaluation: 08/14/18 Time of Evaluation: 10:33 - Subjective Subjective: FEELS BETTER REFUSING TO KEEP O2 ON STATES THAT HE FEELS BETTER Objective - Vital Signs/Intake and Output Vital Signs (last 24 hours): Temp Pulse Resp BP Pulse Ox 98.1 F 93 H 18 127/75 83 L 08/14/18 08:13 08/14/18 08:13 08/14/18 08:13 08/14/18 08:13 08/14/18 08:13 - Medications Medications: Current Medications Albuterol/Ipratropium (Duoneb 3 Mg/0.5 Mg (3 Ml) Ud) 3 ml INH RQ2 PRN PRN Reason: Shortness of Breath Albuterol/Ipratropium (Duoneb 3 Mg/0.5 Mg (3 Ml) Ud) 3 ml INH RQ4 [facility] Last Admin: 08/14/18 07:21 Dose: 3 ml Dextrose (Dextrose 50% Inj) 0 ml IV STAT PRN; Protocol PRN Reason: Hypoglycemia Protocol Dextrose (Glutose 15) 0 gm PO ONCE PRN; Protocol PRN Reason: Hypoglycemia Protocol Ergocalciferol (Drisdol 50,000 Intl Units Cap) 1 cap PO SUN [facility] Furosemide (Lasix) 60 mg IVP Q12 [facility] Last Admin: 08/13/18 22:21 Dose: 60 mg Glucagon (Glucagen Diagnostic Kit) 0 mg IM STAT PRN; Protocol PRN Reason: Hypoglycemia Protocol Heparin Sodium (Porcine) (Heparin) 5,000 units SC Q12 [facility]; Protocol Last Admin: 08/14/18 08:25 Dose: 5,000 units Piperacillin Sod/Tazobactam (Sod 3.375 gm/ Sodium Chloride) 100 mls @ 100 mls/hr IVPB Q6H [facility]; Protocol Last Admin: 08/14/18 06:00 Dose: 100 mls/hr Vancomycin HCl 1 gm/ Sodium (Chloride) 250 mls @ 166.667 mls/hr IVPB DAILY [facility]; Protocol Last Admin: 08/14/18 08:27 Dose: 166.667 mls/hr Insulin Human Lispro (Humalog) 0 units SC ACHS [facility]; Protocol Last Admin: 08/14/18 08:23 Dose: 3 units Methylprednisolone (Solu-Medrol) 40 mg IVP Q8 [facility] Last Admin: 08/14/18 08:25 Dose: 40 mg Trazodone HCl (Desyrel) 150 mg PO HS [facility] Last Admin: 08/13/18 22:23 Dose: 150 mg - Labs Labs: 08/14/18 05:15 08/14/18 05:15 - Constitutional Appears: No Acute Distress - Head Exam Head Exam: ATRAUMATIC, NORMAL INSPECTION, NORMOCEPHALIC - Eye Exam Eye Exam: EOMI, Normal appearance, PERRL Pupil Exam: NORMAL ACCOMODATION, PERRL - ENT Exam ENT Exam: Mucous Membranes Moist, Normal Exam - Neck Exam Neck Exam: Full ROM, Normal Inspection. absent: Lymphadenopathy - Respiratory Exam Respiratory Exam: Decreased Breath Sounds, Prolonged Expiratory Phase, Rales, Wheezes, NORMAL BREATHING PATTERN - Cardiovascular Exam Cardiovascular Exam: REGULAR RHYTHM, +S1, +S2. absent: Murmur - GI/Abdominal Exam GI & Abdominal Exam: Soft, Normal Bowel Sounds. absent: Tenderness - Rectal Exam Rectal Exam: NORMAL INSPECTION - Extremities Exam Extremities Exam: Full ROM, Normal Capillary Refill, Normal Inspection. absent: Joint Swelling, Pedal Edema - Back Exam Back Exam: NORMAL INSPECTION - Neurological Exam Neurological Exam: Alert, Awake, CN II-XII Intact, Normal Gait, Oriented x3 - Psychiatric Exam Psychiatric exam: Normal Affect, Normal Mood - Skin Skin Exam: Dry, Intact, Normal Color, Warm Assessment and Plan - Assessment and Plan (Free Text) Assessment: RESPIRATORY FAILURE--CLINICALLY IMPROVING DESPITE HYPOXEMIA--NOTED ON ABGS CXR OFFICIAL REPORT PENDING Plan: ADVISED TO KEEP O2 ON ESPECIALLY DURING SLEEP CONTINUE RX ORDERED
[2018-08-14 12:24] LABS: BANDS 4 % (0-2); LYMPHOCYTE 4 % (20-50); MONOCYTE 6 % (0-10); NEUTROPHIL 86 % (42-75); TOTAL CELLS COUNTED 100
[2018-08-14 12:25] LABS: ANISOCYTOSIS SLIGHT; PLATELET ESTIMATE NORMAL (NORMAL)
[2018-08-14] MEDS: Azithromycin 500 MG in Sodium Chloride 0.9% 250 ML IVPB SCH (12:57)
--- NOTE | 2018-08-14 16:26 | RAD ---
Date of service: 08/14/2018 PROCEDURE: CHEST RADIOGRAPH, 1 VIEW HISTORY: PNEUMONIA COMPARISON: 08/12/2018 FINDINGS: LUNGS: Minor improvement in aeration from prior study with mild persistent edema or infiltrates remaining PLEURA: . CARDIOVASCULAR: Minor atherosclerotic change of the aorta. Stable congestion. Heart is unchanged. OSSEOUS STRUCTURES: No significant abnormalities. VISUALIZED UPPER ABDOMEN: Normal. OTHER FINDINGS: None. IMPRESSION: Slight improvement in aeration.
[2018-08-14] MEDS: Fluticasone-Salmeterol 250-50mcg Diskus IH SCH (21:38)
[2018-08-14] MEDS: Albuterol 0.083% Inhal Sol (2.5 mg/3 mL) UD INH PRN (23:04)
[2018-08-15] MEDS: Piperacillin/Tazobact 3.375 GM in Sodium Chloride 0.9% 100 ML IVPB SCH ×4 (00:05→17:44)
[2018-08-15] MEDS: Albuterol 0.083% Inhal Sol (2.5 mg/3 mL) UD INH PRN ×2 (06:01→23:36)
[2018-08-15] MEDS: Albuterol-Ipratrop 3 mg / 0.5 (3 ml) UD INH SCH ×4 (07:37→19:30)
[2018-08-15 07:38] LABS: ALBUMIN 3.8 g/dL (3.5-5.0); ALT/SGPT 70 U/L (21-72); AST/SGOT 48 U/L (17-59); BLOOD UREA NITROGEN 15 mg/dl (9-20); CALCIUM 9.1 mg/dL (8.4-10.2); GFR NON-AFRICAN AMERICAN > 60
[2018-08-15 07:50] LABS: MEAN CELL VOLUME 89.2 fl (80.0-94.0); MEAN CORPUSCULAR HEMOGLOBIN 27.5 pg (27.0-31.0); MEAN CORPUSCULAR HGB CONC 30.8 g/dL (33.0-37.0); RBC 5.47 Mil/uL (4.40-5.90); RED CELL DISTRIBUTION WIDTH 15.5 % (11.5-14.5); WHITE BLOOD COUNT 14.9 K/uL (4.8-10.8)
[2018-08-15] MEDS ORDERED: Ergocalciferol 50,000 Intl Units Cap PO SCH (09:00)
[2018-08-15] MEDS: Fluticasone-Salmeterol 250-50mcg Diskus IH SCH ×2 (09:28→21:18)
[2018-08-15] MEDS: Insulin Lispro (humaLOG) 100 Units/ml Inj SC SCH ×4 (09:30→22:30)
[2018-08-15] MEDS: Azithromycin 500 MG in Sodium Chloride 0.9% 250 ML IVPB SCH (09:31)
--- NOTE | 2018-08-15 10:09 | CP.PCM.PN ---
<Florencio Belloyaminijustyna - Last Filed: 08/15/18 10:57> Subjective - Date & Time of Evaluation Date of Evaluation: 08/15/18 Time of Evaluation: 09:05 - Subjective Subjective: Patient seen today at bedside this morning, NAD, using Oxigen NC 4L and tolerated NC all night without using BiPAP, noted with some occasional forgetfulness in time and have to be reminded no to take off NC. Denies chest pain, N/V or chills. Objective - Vital Signs/Intake and Output Vital Signs (last 24 hours): Temp Pulse Resp BP Pulse Ox 98.8 F 97 H 18 157/85 H 90 L 08/15/18 08:00 08/15/18 08:00 08/15/18 08:00 08/15/18 09:30 08/15/18 08:00 - Medications Medications: Current Medications Albuterol Sulfate (Albuterol 0.083% Inhal Yesenia (2.5 Mg/3 Ml) Ud) 2.5 mg INH RQ4 PRN PRN Reason: Shortness of Breath Last Admin: 08/15/18 06:01 Dose: 2.5 mg Albuterol/Ipratropium (Duoneb 3 Mg/0.5 Mg (3 Ml) Ud) 3 ml INH RQID [facility] Last Admin: 08/15/18 07:37 Dose: 3 ml Dextrose (Dextrose 50% Inj) 0 ml IV STAT PRN; Protocol PRN Reason: Hypoglycemia Protocol Dextrose (Glutose 15) 0 gm PO ONCE PRN; Protocol PRN Reason: Hypoglycemia Protocol Ergocalciferol (Drisdol 50,000 Intl Units Cap) 1 cap PO SUN [facility] Last Admin: 08/15/18 09:29 Dose: 1 cap Furosemide (Lasix) 40 mg PO DAILY [facility] Last Admin: 08/15/18 09:30 Dose: 40 mg Glucagon (Glucagen Diagnostic Kit) 0 mg IM STAT PRN; Protocol PRN Reason: Hypoglycemia Protocol Heparin Sodium (Porcine) (Heparin) 5,000 units SC Q12 [facility]; Protocol Last Admin: 08/15/18 09:29 Dose: 5,000 units Piperacillin Sod/Tazobactam (Sod 3.375 gm/ Sodium Chloride) 100 mls @ 100 mls/hr IVPB Q6H [facility]; Protocol Last Admin: 08/15/18 06:12 Dose: 100 mls/hr Vancomycin HCl 1 gm/ Sodium (Chloride) 250 mls @ 166.667 mls/hr IVPB DAILY [facility]; Protocol Last Admin: 08/15/18 09:30 Dose: 166.667 mls/hr Azithromycin 500 mg/ Sodium (Chloride) 250 mls @ 250 mls/hr IVPB DAILY [facility]; Protocol Last Admin: 08/15/18 09:31 Dose: 250 mls/hr Insulin Human Lispro (Humalog) 0 units SC ACHS [facility]; Protocol Last Admin: 08/15/18 09:30 Dose: Not Given Prednisone (Prednisone Tab) 40 mg PO DAILY [facility] Last Admin: 08/15/18 09:28 Dose: 40 mg Fluticasone/Salmeterol (Advair Diskus 250/50) 1 puff IH Q12 [facility] Last Admin: 08/15/18 09:28 Dose: 1 puff Trazodone HCl (Desyrel) 150 mg PO HS [facility] Last Admin: 08/14/18 21:42 Dose: 150 mg - Labs Labs: 08/15/18 05:30 08/15/18 05:30 - Constitutional Appears: No Acute Distress - Head Exam Head Exam: ATRAUMATIC, NORMOCEPHALIC - Eye Exam Eye Exam: EOMI - ENT Exam ENT Exam: Mucous Membranes Moist - Neck Exam Neck Exam: Full ROM - Respiratory Exam Respiratory Exam: Wheezes Additional comments: There are difusse wheezing b/l lungs, but better air entry b/l compared to prior days. - Cardiovascular Exam Cardiovascular Exam: RRR, +S1, +S2 - Extremities Exam Extremities Exam: Pedal Edema - Neurological Exam Neurological Exam: Alert, Awake - Psychiatric Exam Psychiatric exam: Normal Affect - Skin Skin Exam: Normal Color, Warm Assessment and Plan - Assessment and Plan (Free Text) Assessment: 63 Y/O Male with PMHx of HTN, T2DM, Obesity, Depression, Arthritis and CKD, presenting to the ED with c/o cough, weakness and SOB for approximately 3 days. Patient was found in the ED to have a leukocytois with bands 4%, CXR with b/l infiltrate opacities, hypercapnia and hypoxemia and was admitted with Respiratory failure secondary to PNA. Plan: Hypercapnic-hypoxemic Respiratory Failure -2/2 to b/l pneumonia, with obesity hypoventilation syndome -improving -BiPAP setting IPAP 12, EPAP 6, FIO2 75, Rate 14 -ABG: PCO2 down to 46, pH improved to 7.48 -Pulmonology consult, Dr Hendricks, Recommendations appreciated -C/W Duonebs neb inh -Prednisone 40 PO QD Respiratory Acidosis -improving -Pco2 46 today -pH: 7.48 today (7.21 on admission) -c/w BiPaP and supplemental O2 -Pt agreeable to intubation if fails Non-invasive management -f/u ABG Bilateral Pneumonia -improving -ABG shows improvement -afebrile -leukocytosis improving -Procalcitonin: 1.11 -Sputum culture ordered, f/u results -Legionella urine Ag, f/u results -C/w Zosym 3.375 Q6h IV -C/W Vanco IV Sepsis -resolved -lactic acid down to 1.7 NIDDM2 -controlled -HBA1C 6.3 -hold home PO meds -Lispro Correction scale Hypertension -stable -monitor Obesity -BMI 43.6 Transaminemia -f/u AM CMP History of Depression -c/w Trazodone -Buspar-Hold -Temazepam 30-Hold DVT PPx: Heparin 5000U SC Q12h Code Status Full Code <[email or web address] poole D - Last Filed: 08/15/18 14:19> Objective - Vital Signs/Intake and Output Vital Signs (last 24 hours): Temp Pulse Resp BP Pulse Ox 98.8 F 97 H 18 157/85 H 90 L 08/15/18 08:00 08/15/18 09:00 08/15/18 08:00 08/15/18 09:30 08/15/18 08:00 - Medications Medications: Current Medications Albuterol Sulfate (Albuterol 0.083% Inhal Yesenia (2.5 Mg/3 Ml) Ud) 2.5 mg INH RQ4 PRN PRN Reason: Shortness of Breath Last Admin: 08/15/18 06:01 Dose: 2.5 mg Albuterol/Ipratropium (Duoneb 3 Mg/0.5 Mg (3 Ml) Ud) 3 ml INH RQID [facility] Last Admin: 08/15/18 11:53 Dose: 3 ml Dextrose (Dextrose 50% Inj) 0 ml IV STAT PRN; Protocol PRN Reason: Hypoglycemia Protocol Dextrose (Glutose 15) 0 gm PO ONCE PRN; Protocol PRN Reason: Hypoglycemia Protocol Ergocalciferol (Drisdol 50,000 Intl Units Cap) 1 cap PO SUN [facility] Last Admin: 08/15/18 09:29 Dose: 1 cap Furosemide (Lasix) 40 mg PO DAILY [facility] Last Admin: 08/15/18 09:30 Dose: 40 mg Glucagon (Glucagen Diagnostic Kit) 0 mg IM STAT PRN; Protocol PRN Reason: Hypoglycemia Protocol Heparin Sodium (Porcine) (Heparin) 5,000 units SC Q12 [facility]; Protocol Last Admin: 08/15/18 09:29 Dose: 5,000 units Piperacillin Sod/Tazobactam (Sod 3.375 gm/ Sodium Chloride) 100 mls @ 100 mls/hr IVPB Q6H [facility]; Protocol Last Admin: 08/15/18 13:27 Dose: 100 mls/hr Vancomycin HCl 1 gm/ Sodium (Chloride) 250 mls @ 166.667 mls/hr IVPB DAILY [facility]; Protocol Last Admin: 08/15/18 09:30 Dose: 166.667 mls/hr Azithromycin 500 mg/ Sodium (Chloride) 250 mls @ 250 mls/hr IVPB DAILY [facility]; Protocol Last Admin: 08/15/18 09:31 Dose: 250 mls/hr Insulin Human Lispro (Humalog) 0 units SC ACHS [facility]; Protocol Last Admin: 08/15/18 13:28 Dose: 2 units Modafinil (Provigil) 200 mg PO DAILY [facility] Last Admin: 08/15/18 13:28 Dose: 200 mg Prednisone (Prednisone Tab) 40 mg PO DAILY [facility] Last Admin: 08/15/18 09:28 Dose: 40 mg Fluticasone/Salmeterol (Advair Diskus 250/50) 1 puff IH Q12 [facility] Last Admin: 08/15/18 09:28 Dose: 1 puff Trazodone HCl (Desyrel) 150 mg PO HS [facility] Last Admin: 08/14/18 21:42 Dose: 150 mg - Labs Labs: 08/15/18 05:30 08/15/18 05:30 Attending/Attestation - Attestation I have personally seen and examined this patient.: Yes I have fully participated in the care of the patient.: Yes I have reviewed all pertinent clinical information, including history, physical exam and plan: Yes Notes (Text): 08/15/18 14:16 Patient seen and examined with resident. Continued to refuse wearing Bipap mask causing his pCO2 remaining high.
--- NOTE | 2018-08-15 10:57 | CP.PCM.PN ---
Subjective - Date & Time of Evaluation Date of Evaluation: 08/15/18 Time of Evaluation: 11:00 - Subjective Subjective: REFUSING TO KEEP O2 ON EPISODES OF CONFUSION OOB TO CHAIR Objective - Vital Signs/Intake and Output Vital Signs (last 24 hours): Temp Pulse Resp BP Pulse Ox 98.8 F 97 H 18 157/85 H 90 L 08/15/18 08:00 08/15/18 08:00 08/15/18 08:00 08/15/18 09:30 08/15/18 08:00 - Medications Medications: Current Medications Albuterol Sulfate (Albuterol 0.083% Inhal Yesenia (2.5 Mg/3 Ml) Ud) 2.5 mg INH RQ4 PRN PRN Reason: Shortness of Breath Last Admin: 08/15/18 06:01 Dose: 2.5 mg Albuterol/Ipratropium (Duoneb 3 Mg/0.5 Mg (3 Ml) Ud) 3 ml INH RQID [facility] Last Admin: 08/15/18 07:37 Dose: 3 ml Dextrose (Dextrose 50% Inj) 0 ml IV STAT PRN; Protocol PRN Reason: Hypoglycemia Protocol Dextrose (Glutose 15) 0 gm PO ONCE PRN; Protocol PRN Reason: Hypoglycemia Protocol Ergocalciferol (Drisdol 50,000 Intl Units Cap) 1 cap PO SUN [facility] Last Admin: 08/15/18 09:29 Dose: 1 cap Furosemide (Lasix) 40 mg PO DAILY [facility] Last Admin: 08/15/18 09:30 Dose: 40 mg Glucagon (Glucagen Diagnostic Kit) 0 mg IM STAT PRN; Protocol PRN Reason: Hypoglycemia Protocol Heparin Sodium (Porcine) (Heparin) 5,000 units SC Q12 [facility]; Protocol Last Admin: 08/15/18 09:29 Dose: 5,000 units Piperacillin Sod/Tazobactam (Sod 3.375 gm/ Sodium Chloride) 100 mls @ 100 mls/hr IVPB Q6H [facility]; Protocol Last Admin: 08/15/18 06:12 Dose: 100 mls/hr Vancomycin HCl 1 gm/ Sodium (Chloride) 250 mls @ 166.667 mls/hr IVPB DAILY [facility]; Protocol Last Admin: 08/15/18 09:30 Dose: 166.667 mls/hr Azithromycin 500 mg/ Sodium (Chloride) 250 mls @ 250 mls/hr IVPB DAILY [facility]; Protocol Last Admin: 08/15/18 09:31 Dose: 250 mls/hr Insulin Human Lispro (Humalog) 0 units SC ACHS [facility]; Protocol Last Admin: 08/15/18 09:30 Dose: Not Given Modafinil (Provigil) 200 mg PO DAILY [facility] Prednisone (Prednisone Tab) 40 mg PO DAILY [facility] Last Admin: 08/15/18 09:28 Dose: 40 mg Fluticasone/Salmeterol (Advair Diskus 250/50) 1 puff IH Q12 [facility] Last Admin: 08/15/18 09:28 Dose: 1 puff Trazodone HCl (Desyrel) 150 mg PO HS [facility] Last Admin: 08/14/18 21:42 Dose: 150 mg - Labs Labs: 08/15/18 05:30 08/15/18 05:30 - Constitutional Appears: Well, No Acute Distress - Head Exam Head Exam: ATRAUMATIC, NORMAL INSPECTION, NORMOCEPHALIC - Eye Exam Eye Exam: EOMI, Normal appearance, PERRL Pupil Exam: NORMAL ACCOMODATION, PERRL - ENT Exam ENT Exam: Mucous Membranes Moist, Normal Exam - Neck Exam Neck Exam: Full ROM, Normal Inspection. absent: Lymphadenopathy - Respiratory Exam Respiratory Exam: Decreased Breath Sounds, Prolonged Expiratory Phase, Rales, Wheezes Additional comments: MILD DYSPNEA - Cardiovascular Exam Cardiovascular Exam: REGULAR RHYTHM, +S1, +S2. absent: Murmur - GI/Abdominal Exam GI & Abdominal Exam: Soft, Normal Bowel Sounds. absent: Tenderness - Rectal Exam Rectal Exam: NORMAL INSPECTION - Extremities Exam Extremities Exam: Full ROM, Normal Capillary Refill, Pedal Edema. absent: Joint Swelling - Back Exam Back Exam: NORMAL INSPECTION - Neurological Exam Neurological Exam: Alert, Awake, CN II-XII Intact, Oriented x3 - Skin Skin Exam: Dry, Intact, Normal Color, Warm Assessment and Plan - Assessment and Plan (Free Text) Assessment: HYPERCAPNEIC RESPIRATORY FAILURE PNEUMONIA OBESITY HYPOVENTILATION SYNDROME PNEUMONIA DM HTN Plan: ENCOURAGE BIPAP WILL ADD PROVIGYL TO HELP STIMULATE RESPIRATORY CENTER AND IMPROVE HYPERCAPNEA
[2018-08-15] MEDS: Divalproex 125 mg Sprinkle Capsule PO SCH ×2 (21:20→21:25)
[2018-08-16] MEDS: Piperacillin/Tazobact 3.375 GM in Sodium Chloride 0.9% 100 ML IVPB SCH ×4 (00:19→19:57)
[2018-08-16 06:10] LABS: BASO % 0.2 % (0.0-2.0); HEMOGLOBIN 14.4 g/dL (12.0-18.0); LYMPH # 1.2 K/uL (1.0-4.3); MEAN CORPUSCULAR HEMOGLOBIN 27.9 pg (27.0-31.0); MEAN PLATELET VOLUME 8.3 fl (7.2-11.7); MONO # 1.3 K/uL (0.0-0.8); MONO % 13.1 % (0.0-10.0); NEUT # 7.7 K/uL (1.8-7.0); NEUT % 74.7 % (50.0-75.0); NRBC % 0.3 % (0.0-0.0); RBC 5.19 Mil/uL (4.40-5.90); RED CELL DISTRIBUTION WIDTH 15.6 % (11.5-14.5); WHITE BLOOD COUNT 10.3 K/uL (4.8-10.8)
[2018-08-16 06:28] LABS: BLOOD UREA NITROGEN 14 mg/dl (9-20); CALCIUM 8.5 mg/dL (8.4-10.2); GFR NON-AFRICAN AMERICAN > 60
[2018-08-16 06:56] LABS: ABG ALLEN TEST YES; ARTERIAL BLOOD GAS HCO3 31.1 mmol/L (21-28); ARTERIAL BLOOD GAS HEMOGLOBIN 15.2 g/dL (11.7-17.4); ARTERIAL BLOOD GAS O2 CAPACITY 20.5 mL/dL (16-24); ARTERIAL BLOOD GAS O2 CONTENT 18.6 ML/dL (15-23); ARTERIAL BLOOD GAS O2 SAT 90.9 % (95-98); ARTERIAL BLOOD GAS PCO2 71 mm/Hg (35-45); ARTERIAL BLOOD GAS PH 7.33 (7.35-7.45); ARTERIAL BLOOD GAS PO2 56 mm/Hg (80-100); ARTERIAL BLOOD GAS TCO2 39.6 mmol/L (22-28)
[2018-08-16] MEDS: Albuterol-Ipratrop 3 mg / 0.5 (3 ml) UD INH SCH ×4 (07:38→19:07)
--- NOTE | 2018-08-16 08:22 | CP.PCM.PN ---
Subjective - Date & Time of Evaluation Date of Evaluation: 08/16/18 Time of Evaluation: 08:24 - Subjective Subjective: DROWSY TODAY ON BIPAP ABGS--WORSENING HYPERCAPNEA Objective - Vital Signs/Intake and Output Vital Signs (last 24 hours): Temp Pulse Resp BP Pulse Ox 98.5 F 69 20 107/64 92 L 08/16/18 08:15 08/16/18 08:15 08/16/18 08:15 08/16/18 08:15 08/16/18 08:15 - Medications Medications: Current Medications Albuterol Sulfate (Albuterol 0.083% Inhal Yesenia (2.5 Mg/3 Ml) Ud) 2.5 mg INH RQ4 PRN PRN Reason: Shortness of Breath Last Admin: 08/15/18 23:36 Dose: 2.5 mg Albuterol/Ipratropium (Duoneb 3 Mg/0.5 Mg (3 Ml) Ud) 3 ml INH RQID [facility] Last Admin: 08/16/18 07:38 Dose: 3 ml Amlodipine Besylate (Norvasc) 5 mg PO DAILY [facility] Last Admin: 08/15/18 17:36 Dose: 5 mg Atorvastatin Calcium (Lipitor) 10 mg PO HS [facility] Last Admin: 08/15/18 21:20 Dose: 10 mg Buspirone HCl (Buspar) 5 mg PO DAILY [facility] Clonazepam (Klonopin) 1 mg PO HS PRN PRN Reason: Anxiety Dextrose (Dextrose 50% Inj) 0 ml IV STAT PRN; Protocol PRN Reason: Hypoglycemia Protocol Dextrose (Glutose 15) 0 gm PO ONCE PRN; Protocol PRN Reason: Hypoglycemia Protocol Divalproex Sodium (Depakote Sprinkles) 125 mg PO HS [facility] Last Admin: 08/15/18 21:25 Dose: Not Given Enoxaparin Sodium (Lovenox) 40 mg SC DAILY [facility]; Protocol Ergocalciferol (Drisdol 50,000 Intl Units Cap) 1 cap PO SUN [facility] Last Admin: 08/15/18 09:29 Dose: 1 cap Furosemide (Lasix) 40 mg PO DAILY [facility] Last Admin: 08/15/18 09:30 Dose: 40 mg Glucagon (Glucagen Diagnostic Kit) 0 mg IM STAT PRN; Protocol PRN Reason: Hypoglycemia Protocol Piperacillin Sod/Tazobactam (Sod 3.375 gm/ Sodium Chloride) 100 mls @ 100 mls/hr IVPB Q6H [facility]; Protocol Last Admin: 08/16/18 05:48 Dose: 100 mls/hr Azithromycin 500 mg/ Sodium (Chloride) 250 mls @ 250 mls/hr IVPB DAILY [facility]; Protocol Last Admin: 08/15/18 09:31 Dose: 250 mls/hr Vancomycin HCl 1 gm/ Sodium (Chloride) 250 mls @ 166.667 mls/hr IVPB Q12 [facility]; Protocol Last Admin: 08/15/18 21:19 Dose: 166.667 mls/hr Insulin Human Lispro (Humalog) 0 units SC ACHS [facility]; Protocol Last Admin: 08/15/18 22:30 Dose: Not Given Lisinopril (Zestril) 20 mg PO DAILY [facility] Last Admin: 08/15/18 17:33 Dose: 20 mg Metformin HCl (Glucophage) 1,000 mg PO BID [facility] Last Admin: 08/15/18 17:33 Dose: 1,000 mg Modafinil (Provigil) 200 mg PO DAILY [facility] Last Admin: 08/15/18 13:28 Dose: 200 mg Prednisone (Prednisone Tab) 40 mg PO DAILY [facility] Last Admin: 08/15/18 09:28 Dose: 40 mg Fluticasone/Salmeterol (Advair Diskus 250/50) 1 puff IH Q12 [facility] Last Admin: 08/15/18 21:18 Dose: 1 puff Sitagliptin Phosphate (Januvia) 100 mg PO DAILY [facility] Last Admin: 08/15/18 17:33 Dose: 100 mg Trazodone HCl (Desyrel) 150 mg PO HS [facility] Last Admin: 08/15/18 21:20 Dose: 150 mg - Labs Labs: 08/16/18 04:20 08/16/18 04:20 - Constitutional Appears: No Acute Distress - Head Exam Head Exam: ATRAUMATIC, NORMAL INSPECTION, NORMOCEPHALIC - Eye Exam Eye Exam: EOMI, Normal appearance, PERRL Pupil Exam: NORMAL ACCOMODATION, PERRL - ENT Exam ENT Exam: Mucous Membranes Moist, Normal Exam - Neck Exam Neck Exam: Full ROM, Normal Inspection. absent: Lymphadenopathy - Respiratory Exam Respiratory Exam: Decreased Breath Sounds, Rales, NORMAL BREATHING PATTERN - Cardiovascular Exam Cardiovascular Exam: REGULAR RHYTHM, +S1, +S2. absent: Murmur - GI/Abdominal Exam GI & Abdominal Exam: Soft, Normal Bowel Sounds. absent: Tenderness - Rectal Exam Rectal Exam: NORMAL INSPECTION - Extremities Exam Extremities Exam: Full ROM, Normal Capillary Refill, Normal Inspection, Pedal Edema. absent: Joint Swelling - Back Exam Back Exam: NORMAL INSPECTION - Neurological Exam Additional comments: DROWSY BUT EASILY AROUSABLE - Psychiatric Exam Psychiatric exam: Normal Affect, Normal Mood - Skin Skin Exam: Dry, Intact, Normal Color, Warm Assessment and Plan - Assessment and Plan (Free Text) Assessment: ACUTE HYPERCAPNEIC RESPIRATORY FAILURE OBESITY HYPOVENTILATION SYNDROME Plan: CONTINUE BIPAP RX INCREASE BIPAP RATE TO 18/M SERIAL ABGS ADVISE COMPLIANT TO BIPAP RX
[2018-08-16] MEDS: Azithromycin 500 MG in Sodium Chloride 0.9% 250 ML IVPB SCH (08:46)
[2018-08-16] MEDS: Fluticasone-Salmeterol 250-50mcg Diskus IH SCH ×2 (08:47→21:01)
[2018-08-16] MEDS: Insulin Lispro (humaLOG) 100 Units/ml Inj SC SCH ×4 (08:48→21:35)
[2018-08-16] MEDS: Enoxaparin 40 mg Syringe SC SCH (08:52)
--- NOTE | 2018-08-16 09:26 | CP.PCM.PN ---
<Jose Bello - Last Filed: 08/16/18 10:07> Subjective - Date & Time of Evaluation Date of Evaluation: 08/16/18 Time of Evaluation: 09:03 - Subjective Subjective: Patient seen today at bedside using BiPAP this AM, patient is noted drowsy today, but aousable and is AAOx3 to questions, is advised to keep BiPAP on. Objective - Vital Signs/Intake and Output Vital Signs (last 24 hours): Temp Pulse Resp BP Pulse Ox 98.5 F 69 20 107/64 92 L 08/16/18 08:15 08/16/18 08:15 08/16/18 08:15 08/16/18 08:51 08/16/18 08:15 - Medications Medications: Current Medications Albuterol Sulfate (Albuterol 0.083% Inhal Yesenia (2.5 Mg/3 Ml) Ud) 2.5 mg INH RQ4 PRN PRN Reason: Shortness of Breath Last Admin: 08/15/18 23:36 Dose: 2.5 mg Albuterol/Ipratropium (Duoneb 3 Mg/0.5 Mg (3 Ml) Ud) 3 ml INH RQID [facility] Last Admin: 08/16/18 07:38 Dose: 3 ml Amlodipine Besylate (Norvasc) 5 mg PO DAILY [facility] Last Admin: 08/15/18 17:36 Dose: 5 mg Atorvastatin Calcium (Lipitor) 10 mg PO HS [facility] Last Admin: 08/15/18 21:20 Dose: 10 mg Buspirone HCl (Buspar) 5 mg PO DAILY [facility] Last Admin: 08/16/18 08:47 Dose: 5 mg Clonazepam (Klonopin) 1 mg PO HS PRN PRN Reason: Anxiety Dextrose (Dextrose 50% Inj) 0 ml IV STAT PRN; Protocol PRN Reason: Hypoglycemia Protocol Dextrose (Glutose 15) 0 gm PO ONCE PRN; Protocol PRN Reason: Hypoglycemia Protocol Divalproex Sodium (Depakote Sprinkles) 125 mg PO HS [facility] Last Admin: 08/15/18 21:25 Dose: Not Given Enoxaparin Sodium (Lovenox) 40 mg SC DAILY [facility]; Protocol Last Admin: 08/16/18 08:52 Dose: 40 mg Ergocalciferol (Drisdol 50,000 Intl Units Cap) 1 cap PO SUN [facility] Last Admin: 08/15/18 09:29 Dose: 1 cap Furosemide (Lasix) 40 mg PO DAILY [facility] Last Admin: 08/16/18 08:51 Dose: 40 mg Glucagon (Glucagen Diagnostic Kit) 0 mg IM STAT PRN; Protocol PRN Reason: Hypoglycemia Protocol Piperacillin Sod/Tazobactam (Sod 3.375 gm/ Sodium Chloride) 100 mls @ 100 mls/hr IVPB Q6H [facility]; Protocol Last Admin: 08/16/18 05:48 Dose: 100 mls/hr Azithromycin 500 mg/ Sodium (Chloride) 250 mls @ 250 mls/hr IVPB DAILY [facility]; Protocol Last Admin: 08/16/18 08:46 Dose: 250 mls/hr Vancomycin HCl 1 gm/ Sodium (Chloride) 250 mls @ 166.667 mls/hr IVPB Q12 [facility]; Protocol Last Admin: 08/16/18 08:45 Dose: 166.667 mls/hr Insulin Human Lispro (Humalog) 0 units SC ACHS [facility]; Protocol Last Admin: 08/16/18 08:48 Dose: Not Given Lisinopril (Zestril) 20 mg PO DAILY [facility] Last Admin: 08/15/18 17:33 Dose: 20 mg Metformin HCl (Glucophage) 1,000 mg PO BID [facility] Last Admin: 08/16/18 08:47 Dose: 1,000 mg Modafinil (Provigil) 200 mg PO DAILY [facility] Last Admin: 08/15/18 13:28 Dose: 200 mg Prednisone (Prednisone Tab) 40 mg PO DAILY [facility] Last Admin: 08/16/18 08:53 Dose: 40 mg Fluticasone/Salmeterol (Advair Diskus 250/50) 1 puff IH Q12 [facility] Last Admin: 08/16/18 08:47 Dose: 1 puff Sitagliptin Phosphate (Januvia) 100 mg PO DAILY [facility] Last Admin: 08/16/18 08:50 Dose: 100 mg Trazodone HCl (Desyrel) 150 mg PO HS [facility] Last Admin: 08/15/18 21:20 Dose: 150 mg - Labs Labs: 08/16/18 04:20 08/16/18 04:20 - Constitutional Appears: No Acute Distress - Head Exam Head Exam: ATRAUMATIC, NORMOCEPHALIC - Eye Exam Eye Exam: EOMI, PERRL - ENT Exam ENT Exam: Mucous Membranes Moist - Respiratory Exam Respiratory Exam: Decreased Breath Sounds, Wheezes - Cardiovascular Exam Cardiovascular Exam: RRR, +S1, +S2 - GI/Abdominal Exam GI & Abdominal Exam: Normal Bowel Sounds. absent: Tenderness - Extremities Exam Extremities Exam: Pedal Edema - Neurological Exam Neurological Exam: Oriented x3 - Psychiatric Exam Psychiatric exam: Normal Affect, Normal Mood - Skin Skin Exam: Normal Color, Warm Assessment and Plan - Assessment and Plan (Free Text) Assessment: 63 Y/O Male with PMHx of HTN, T2DM, Obesity, Depression, Arthritis and CKD, presenting to the ED with c/o cough, weakness and SOB for approximately 3 days. Patient was found in the ED to have a leukocytois with bands 4%, CXR with b/l infiltrate opacities, hypercapnia and hypoxemia and was admitted with Hypercapneic Respiratory failure secondary to PNA. Plan: Hypercapnic-hypoxemic Respiratory Failure -2/2 to b/l pneumonia, with obesity hypoventilation syndome -Patient is noted drowsy today likely 2/2 eleavted CO2, -Provigil 200 added as per Pulmo recommendation to stimulate pt to keep alert and improve respiration during the day -BiPAP setting IPAP 12, EPAP 6, FIO2 75, Rate increased to 18 today -ABG: PCO2 up to 71 today, pH 7.33 -Pulmonology consult, Dr Hendricks, Recommendations appreciated -C/W Duonebs neb inh -SoluMedrol 40 IV Q8h Respiratory Acidosis -Pco2 71 today -pH: 7.33 today (7.21 on admission) -c/w BiPaP and supplemental O2 -Pt agreeable to intubation if fails Non-invasive management -f/u ABG Bilateral Pneumonia -improving -afebrile -leukocytosis improving -Procalcitonin: 1.11 -Sputum culture ordered, f/u results -Legionella urine Ag, negative -C/w Zosym 3.375 Q6h IV -C/W Vanco IV -C/w Zithro Sepsis -resolved -lactic acid down to 1.7 NIDDM2 -controlled -HBA1C 6.3 - home PO meds resumed -Lispro Correction scale Hypertension -stable -C/w Lisinopril -C/w Norvasc -monitor BP Obesity -BMI 43.6 Transaminemia -Resolved History of Depression -c/w Trazodone, dose adjusted 150 to 100 due to drwsyness -Buspar-Hold -Temazepam 30-Hold DVT PPx: Lovenox 40 SC QD Code Status Full Code <Abby Tate - Last Filed: 08/16/18 15:44> Objective - Vital Signs/Intake and Output Vital Signs (last 24 hours): Temp Pulse Resp BP Pulse Ox 98.5 F 74 20 129/77 92 L 08/16/18 08:15 08/16/18 11:09 08/16/18 08:15 08/16/18 13:42 08/16/18 08:15 - Medications Medications: Current Medications Albuterol Sulfate (Albuterol 0.083% Inhal Yesenia (2.5 Mg/3 Ml) Ud) 2.5 mg INH RQ4 PRN PRN Reason: Shortness of Breath Last Admin: 08/15/18 23:36 Dose: 2.5 mg Albuterol/Ipratropium (Duoneb 3 Mg/0.5 Mg (3 Ml) Ud) 3 ml INH RQID [facility] Last Admin: 08/16/18 11:09 Dose: 3 ml Amlodipine Besylate (Norvasc) 5 mg PO DAILY [facility] Last Admin: 08/16/18 13:40 Dose: 5 mg Atorvastatin Calcium (Lipitor) 10 mg PO HS [facility] Last Admin: 08/15/18 21:20 Dose: 10 mg Buspirone HCl (Buspar) 5 mg PO DAILY [facility] Last Admin: 08/16/18 08:47 Dose: 5 mg Dextrose (Dextrose 50% Inj) 0 ml IV STAT PRN; Protocol PRN Reason: Hypoglycemia Protocol Dextrose (Glutose 15) 0 gm PO ONCE PRN; Protocol PRN Reason: Hypoglycemia Protocol Enoxaparin Sodium (Lovenox) 40 mg SC DAILY [facility]; Protocol Last Admin: 08/16/18 08:52 Dose: 40 mg Ergocalciferol (Drisdol 50,000 Intl Units Cap) 1 cap PO SUN [facility] Last Admin: 08/15/18 09:29 Dose: 1 cap Furosemide (Lasix) 40 mg PO DAILY [facility] Last Admin: 08/16/18 08:51 Dose: 40 mg Glucagon (Glucagen Diagnostic Kit) 0 mg IM STAT PRN; Protocol PRN Reason: Hypoglycemia Protocol Piperacillin Sod/Tazobactam (Sod 3.375 gm/ Sodium Chloride) 100 mls @ 100 mls/hr IVPB Q6H [facility]; Protocol Last Admin: 08/16/18 13:37 Dose: 100 mls/hr Azithromycin 500 mg/ Sodium (Chloride) 250 mls @ 250 mls/hr IVPB DAILY [facility]; Protocol Last Admin: 08/16/18 08:46 Dose: 250 mls/hr Vancomycin HCl 1 gm/ Sodium (Chloride) 250 mls @ 166.667 mls/hr IVPB Q12 [facility]; Protocol Last Admin: 08/16/18 08:45 Dose: 166.667 mls/hr Insulin Human Lispro (Humalog) 0 units SC ACHS [facility]; Protocol Last Admin: 08/16/18 13:34 Dose: 3 units Lisinopril (Zestril) 20 mg PO DAILY [facility] Last Admin: 08/16/18 13:42 Dose: 20 mg Metformin HCl (Glucophage) 1,000 mg PO BID [facility] Last Admin: 08/16/18 08:47 Dose: 1,000 mg Methylprednisolone (Solu-Medrol) 40 mg IVP Q8H [facility] Last Admin: 08/16/18 13:35 Dose: 40 mg Modafinil (Provigil) 200 mg PO DAILY [facility] Last Admin: 08/16/18 13:41 Dose: 200 mg Fluticasone/Salmeterol (Advair Diskus 250/50) 1 puff IH Q12 [facility] Last Admin: 08/16/18 08:47 Dose: 1 puff Sitagliptin Phosphate (Januvia) 100 mg PO DAILY [facility] Last Admin: 08/16/18 08:50 Dose: 100 mg Trazodone HCl (Desyrel) 100 mg PO HS [facility] - Labs Labs: 08/16/18 04:20 08/16/18 04:20 Attending/Attestation - Attestation I have personally seen and examined this patient.: Yes I have fully participated in the care of the patient.: Yes I have reviewed all pertinent clinical information, including history, physical exam and plan: Yes
[2018-08-16] MEDS ORDERED: MethylPREDNISolone 40 mg Vial IVP SCH (10:00)
[2018-08-16 12:29] LABS: ABG ALLEN TEST YES; ARTERIAL BLOOD GAS HCO3 31.6 mmol/L (21-28); ARTERIAL BLOOD GAS HEMOGLOBIN 15.5 g/dL (11.7-17.4); ARTERIAL BLOOD GAS O2 CAPACITY 21.1 mL/dL (16-24); ARTERIAL BLOOD GAS O2 CONTENT 17.8 ML/dL (15-23); ARTERIAL BLOOD GAS O2 SAT 84.5 % (95-98); ARTERIAL BLOOD GAS PCO2 61 mm/Hg (35-45); ARTERIAL BLOOD GAS PH 7.39 (7.35-7.45); ARTERIAL BLOOD GAS PO2 44 mm/Hg (80-100); ARTERIAL BLOOD GAS TCO2 38.8 mmol/L (22-28)
[2018-08-16] MEDS: MethylPREDNISolone 40 mg Vial IVP SCH (13:35)
[2018-08-16] MEDS ORDERED: methylPREDNISolone 40 MG in Sodium Chloride 0.9% 50 ML IVPB SCH (17:00)
[2018-08-17] MEDS: Piperacillin/Tazobact 3.375 GM in Sodium Chloride 0.9% 100 ML IVPB SCH ×4 (01:23→17:56)
[2018-08-17] MEDS: MethylPREDNISolone 40 mg Vial IVP SCH ×4 (01:24→17:51)
[2018-08-17 03:58] LABS: ABG ALLEN TEST YES; ARTERIAL BLOOD GAS HCO3 30.5 mmol/L (21-28); ARTERIAL BLOOD GAS HEMOGLOBIN 14.8 g/dL (11.7-17.4); ARTERIAL BLOOD GAS O2 CAPACITY 20.1 mL/dL (16-24); ARTERIAL BLOOD GAS O2 CONTENT 17.1 ML/dL (15-23); ARTERIAL BLOOD GAS O2 SAT 85.1 % (95-98); ARTERIAL BLOOD GAS PCO2 65 mm/Hg (35-45); ARTERIAL BLOOD GAS PH 7.35 (7.35-7.45); ARTERIAL BLOOD GAS PO2 47 mm/Hg (80-100); ARTERIAL BLOOD GAS TCO2 37.9 mmol/L (22-28)
[2018-08-17 05:10] LABS: HEMOGLOBIN 14.7 g/dL (12.0-18.0); MEAN CELL VOLUME 87.7 fl (80.0-94.0); MEAN CORPUSCULAR HEMOGLOBIN 27.4 pg (27.0-31.0); MEAN CORPUSCULAR HGB CONC 31.3 g/dL (33.0-37.0); RBC 5.37 Mil/uL (4.40-5.90); RED CELL DISTRIBUTION WIDTH 16.2 % (11.5-14.5); WHITE BLOOD COUNT 9.4 K/uL (4.8-10.8)
[2018-08-17 05:36] LABS: BLOOD UREA NITROGEN 21 mg/dl (9-20); CALCIUM 8.6 mg/dL (8.4-10.2); GFR NON-AFRICAN AMERICAN > 60
[2018-08-17] MEDS: Albuterol-Ipratrop 3 mg / 0.5 (3 ml) UD INH SCH ×4 (07:23→20:16)
[2018-08-17] MEDS: Azithromycin 500 MG in Sodium Chloride 0.9% 250 ML IVPB SCH (08:18)
[2018-08-17] MEDS: Fluticasone-Salmeterol 250-50mcg Diskus IH SCH ×2 (08:27→20:52)
[2018-08-17] MEDS: Enoxaparin 40 mg Syringe SC SCH (08:31)
--- NOTE | 2018-08-17 08:40 | CP.PCM.PN ---
Subjective - Date & Time of Evaluation Date of Evaluation: 08/17/18 Time of Evaluation: 08:41 - Subjective Subjective: TOLERATED BIPAP LAST NIGHT 02 SAT 97% ON FIO2 OF 75% Objective - Vital Signs/Intake and Output Vital Signs (last 24 hours): Temp Pulse Resp BP Pulse Ox 98.1 F 71 17 122/67 97 08/17/18 05:00 08/17/18 05:00 08/17/18 05:00 08/17/18 08:29 08/17/18 05:00 - Medications Medications: Current Medications Albuterol Sulfate (Albuterol 0.083% Inhal Yesenia (2.5 Mg/3 Ml) Ud) 2.5 mg INH RQ4 PRN PRN Reason: Shortness of Breath Last Admin: 08/15/18 23:36 Dose: 2.5 mg Albuterol/Ipratropium (Duoneb 3 Mg/0.5 Mg (3 Ml) Ud) 3 ml INH RQID [facility] Last Admin: 08/17/18 07:23 Dose: 3 ml Amlodipine Besylate (Norvasc) 5 mg PO DAILY [facility] Last Admin: 08/17/18 08:31 Dose: 5 mg Atorvastatin Calcium (Lipitor) 10 mg PO HS [facility] Last Admin: 08/16/18 21:03 Dose: 10 mg Buspirone HCl (Buspar) 5 mg PO DAILY [facility] Last Admin: 08/17/18 08:28 Dose: 5 mg Dextrose (Dextrose 50% Inj) 0 ml IV STAT PRN; Protocol PRN Reason: Hypoglycemia Protocol Dextrose (Glutose 15) 0 gm PO ONCE PRN; Protocol PRN Reason: Hypoglycemia Protocol Enoxaparin Sodium (Lovenox) 40 mg SC DAILY [facility]; Protocol Last Admin: 08/17/18 08:31 Dose: 40 mg Ergocalciferol (Drisdol 50,000 Intl Units Cap) 1 cap PO SUN [facility] Last Admin: 08/15/18 09:29 Dose: 1 cap Furosemide (Lasix) 40 mg PO DAILY [facility] Last Admin: 08/17/18 08:29 Dose: 40 mg Glucagon (Glucagen Diagnostic Kit) 0 mg IM STAT PRN; Protocol PRN Reason: Hypoglycemia Protocol Piperacillin Sod/Tazobactam (Sod 3.375 gm/ Sodium Chloride) 100 mls @ 100 mls/hr IVPB Q6H [facility]; Protocol Last Admin: 08/17/18 06:30 Dose: 100 mls/hr Azithromycin 500 mg/ Sodium (Chloride) 250 mls @ 250 mls/hr IVPB DAILY [facility]; Protocol Last Admin: 08/17/18 08:18 Dose: 250 mls/hr Vancomycin HCl 1 gm/ Sodium (Chloride) 250 mls @ 166.667 mls/hr IVPB Q12 [facility]; Protocol Last Admin: 08/16/18 21:01 Dose: 166.667 mls/hr Insulin Human Lispro (Humalog) 0 units SC ACHS [facility]; Protocol Last Admin: 08/16/18 21:35 Dose: Not Given Lisinopril (Zestril) 20 mg PO DAILY [facility] Last Admin: 08/17/18 08:31 Dose: 20 mg Metformin HCl (Glucophage) 1,000 mg PO BID [facility] Last Admin: 08/17/18 08:32 Dose: 1,000 mg Methylprednisolone (Solu-Medrol) 40 mg IVP Q8H [facility] Last Admin: 08/17/18 01:24 Dose: 40 mg Modafinil (Provigil) 200 mg PO DAILY [facility] Last Admin: 08/16/18 13:41 Dose: 200 mg Fluticasone/Salmeterol (Advair Diskus 250/50) 1 puff IH Q12 [facility] Last Admin: 08/17/18 08:27 Dose: 1 puff Sitagliptin Phosphate (Januvia) 100 mg PO DAILY [facility] Last Admin: 08/17/18 08:29 Dose: 100 mg Trazodone HCl (Desyrel) 100 mg PO HS [facility] Last Admin: 08/16/18 21:03 Dose: 100 mg - Labs Labs: 08/17/18 05:04 08/17/18 05:04 - Constitutional Appears: Chronically Ill - Head Exam Head Exam: ATRAUMATIC, NORMAL INSPECTION, NORMOCEPHALIC - Eye Exam Eye Exam: EOMI, Normal appearance, PERRL Pupil Exam: NORMAL ACCOMODATION, PERRL - ENT Exam ENT Exam: Mucous Membranes Moist, Normal Exam - Neck Exam Neck Exam: Full ROM, Normal Inspection. absent: Lymphadenopathy - Respiratory Exam Respiratory Exam: Decreased Breath Sounds, Prolonged Expiratory Phase, Rales, Wheezes, NORMAL BREATHING PATTERN - Cardiovascular Exam Cardiovascular Exam: REGULAR RHYTHM, +S1, +S2. absent: Murmur - GI/Abdominal Exam GI & Abdominal Exam: Soft, Normal Bowel Sounds. absent: Tenderness - Rectal Exam Rectal Exam: NORMAL INSPECTION - Extremities Exam Extremities Exam: Full ROM, Normal Capillary Refill, Pedal Edema. absent: Joint Swelling - Back Exam Back Exam: NORMAL INSPECTION - Neurological Exam Neurological Exam: Alert, Awake, CN II-XII Intact, Normal Gait, Oriented x3 - Psychiatric Exam Psychiatric exam: Normal Affect, Normal Mood - Skin Skin Exam: Dry, Intact, Normal Color, Warm Assessment and Plan - Assessment and Plan (Free Text) Assessment: ACUTE RESPIRATORY FAILURE HYPOXEMIA ON ABGS DESPITE IMPROVEMENT OF ACID/BASE STATUS Plan: CONTINUE CURRENT RX BIPAP TO ALTERNATE WITH O2 [facility]IA [facility]
--- NOTE | 2018-08-17 09:35 | CP.PCM.PN ---
<Vernonrashad MccartneyJose - Last Filed: 08/17/18 12:14> Subjective - Date & Time of Evaluation Date of Evaluation: 08/17/18 Time of Evaluation: 08:45 - Subjective Subjective: Patient seen this AM, noted alert today, walking to the bathroom in room without oxygen and talking to me without noticeable difficulties in breathing or any distress, patient states feeling better today, is AAOx3, patient is explained that he needs to use the BiAPA and alternate with NC O2 for meals times. Denies chest pain, N/V or other acute medical complaint. Objective - Vital Signs/Intake and Output Vital Signs (last 24 hours): Temp Pulse Resp BP Pulse Ox 97.9 F 68 20 114/66 92 L 08/17/18 09:14 08/17/18 09:14 08/17/18 09:14 08/17/18 09:14 08/17/18 09:14 - Medications Medications: Current Medications Albuterol Sulfate (Albuterol 0.083% Inhal Yesenia (2.5 Mg/3 Ml) Ud) 2.5 mg INH RQ4 PRN PRN Reason: Shortness of Breath Last Admin: 08/15/18 23:36 Dose: 2.5 mg Albuterol/Ipratropium (Duoneb 3 Mg/0.5 Mg (3 Ml) Ud) 3 ml INH RQID [facility] Last Admin: 08/17/18 07:23 Dose: 3 ml Amlodipine Besylate (Norvasc) 5 mg PO DAILY [facility] Last Admin: 08/17/18 08:31 Dose: 5 mg Atorvastatin Calcium (Lipitor) 10 mg PO HS [facility] Last Admin: 08/16/18 21:03 Dose: 10 mg Buspirone HCl (Buspar) 5 mg PO DAILY [facility] Last Admin: 08/17/18 08:28 Dose: 5 mg Dextrose (Dextrose 50% Inj) 0 ml IV STAT PRN; Protocol PRN Reason: Hypoglycemia Protocol Dextrose (Glutose 15) 0 gm PO ONCE PRN; Protocol PRN Reason: Hypoglycemia Protocol Enoxaparin Sodium (Lovenox) 40 mg SC DAILY [facility]; Protocol Last Admin: 08/17/18 08:31 Dose: 40 mg Ergocalciferol (Drisdol 50,000 Intl Units Cap) 1 cap PO SUN [facility] Last Admin: 08/15/18 09:29 Dose: 1 cap Furosemide (Lasix) 40 mg PO DAILY [facility] Last Admin: 08/17/18 08:29 Dose: 40 mg Glucagon (Glucagen Diagnostic Kit) 0 mg IM STAT PRN; Protocol PRN Reason: Hypoglycemia Protocol Piperacillin Sod/Tazobactam (Sod 3.375 gm/ Sodium Chloride) 100 mls @ 100 mls/hr IVPB Q6H [facility]; Protocol Last Admin: 08/17/18 06:30 Dose: 100 mls/hr Azithromycin 500 mg/ Sodium (Chloride) 250 mls @ 250 mls/hr IVPB DAILY [facility]; Protocol Last Admin: 08/17/18 08:18 Dose: 250 mls/hr Vancomycin HCl 1 gm/ Sodium (Chloride) 250 mls @ 166.667 mls/hr IVPB Q12 [facility]; Protocol Last Admin: 08/16/18 21:01 Dose: 166.667 mls/hr Insulin Human Lispro (Humalog) 0 units SC ACHS [facility]; Protocol Last Admin: 08/16/18 21:35 Dose: Not Given Lisinopril (Zestril) 20 mg PO DAILY [facility] Last Admin: 08/17/18 08:31 Dose: 20 mg Metformin HCl (Glucophage) 1,000 mg PO BID [facility] Last Admin: 08/17/18 08:32 Dose: 1,000 mg Methylprednisolone (Solu-Medrol) 40 mg IVP Q8H [facility] Last Admin: 08/17/18 01:24 Dose: 40 mg Modafinil (Provigil) 200 mg PO DAILY [facility] Last Admin: 08/16/18 13:41 Dose: 200 mg Fluticasone/Salmeterol (Advair Diskus 250/50) 1 puff IH Q12 [facility] Last Admin: 08/17/18 08:27 Dose: 1 puff Sitagliptin Phosphate (Januvia) 100 mg PO DAILY [facility] Last Admin: 08/17/18 08:29 Dose: 100 mg Trazodone HCl (Desyrel) 100 mg PO HS [facility] Last Admin: 08/16/18 21:03 Dose: 100 mg - Labs Labs: 08/17/18 05:04 08/17/18 05:04 - Head Exam Head Exam: ATRAUMATIC, NORMOCEPHALIC - Eye Exam Eye Exam: EOMI, PERRL - ENT Exam ENT Exam: Mucous Membranes Moist - Respiratory Exam Respiratory Exam: Rhonchi (isolated rhonchi, improved from prior day) - Cardiovascular Exam Cardiovascular Exam: RRR, +S1, +S2 - GI/Abdominal Exam GI & Abdominal Exam: Soft - Extremities Exam Extremities Exam: Pedal Edema - Neurological Exam Neurological Exam: Alert, Awake, CN II-XII Intact, Normal Gait, Oriented x3 - Psychiatric Exam Psychiatric exam: Normal Affect, Normal Mood - Skin Skin Exam: Normal Color, Warm Assessment and Plan - Assessment and Plan (Free Text) Assessment: 63 Y/O Male with PMHx of HTN, T2DM, Obesity, Depression, Arthritis and CKD, presenting to the ED with c/o cough, weakness and SOB for approximately 3 days. Patient was found in the ED to have a leukocytois with bands 4%, CXR with b/l infiltrate opacities, hypercapnia and hypoxemia and was admitted with Hypercapn eic Respiratory failure secondary to PNA. Plan: Hypercapnic-hypoxemic Respiratory Failure - Alert today, clinically improvement noted, despite ABG hipercapneic and hypoxemia. Patient might need sleep studies as outpatient. -2/2 to b/l pneumonia, with obesity hypoventilation syndome -Provigil 200 added as per Pulmo recommendation to stimulate pt to keep alert and improve respiration during the day -BiPAP setting IPAP 12, EPAP 6, FIO2 75, Rate 18 -ABG: PCO2 65 today -Pulmonology consult, Dr Hendricks, Recommendations appreciated -C/W Duonebs neb inh -SoluMedrol 40 IV Q8h Respiratory Acidosis -pCO2 65 today -pH: 7.35 today (7.21 on admission) -c/w BiPaP and supplemental O2 -Pt agreeable to intubation if fails Non-invasive management -f/u ABG Bilateral Pneumonia -improving -afebrile -leukocytosis normalized -Procalcitonin: 1.11 -Sputum culture ordered, f/u results -Legionella urine Ag, negative -C/w Zosym 3.375 Q6h IV -C/W Vanco IV -C/w Zithro Sepsis -resolved -lactic acid down to 1.7 NIDDM2 -controlled -HBA1C 6.3 - home PO meds resumed -Lispro Correction scale Hypertension -stable -C/w Lisinopril -C/w Norvasc -monitor BP Obesity -BMI 43.6 Transaminemia -Resolved History of Depression -c/w Trazodone, dose adjusted 150 to 100 due to drwsyness -Buspar-Hold -Temazepam 30-Hold DVT PPx: Lovenox 40 SC QD Code Status Full Code <Randell Resendez D - Last Filed: 08/17/18 13:20> Objective - Vital Signs/Intake and Output Vital Signs (last 24 hours): Temp Pulse Resp BP Pulse Ox 97.9 F 75 20 114/66 92 L 08/17/18 09:14 08/17/18 11:14 08/17/18 09:14 08/17/18 09:14 08/17/18 09:14 - Medications Medications: Current Medications Albuterol Sulfate (Albuterol 0.083% Inhal Yesenia (2.5 Mg/3 Ml) Ud) 2.5 mg INH RQ4 PRN PRN Reason: Shortness of Breath Last Admin: 08/15/18 23:36 Dose: 2.5 mg Albuterol/Ipratropium (Duoneb 3 Mg/0.5 Mg (3 Ml) Ud) 3 ml INH RQID [facility] Last Admin: 08/17/18 11:14 Dose: 3 ml Amlodipine Besylate (Norvasc) 5 mg PO DAILY [facility] Last Admin: 08/17/18 08:31 Dose: 5 mg Atorvastatin Calcium (Lipitor) 10 mg PO HS [facility] Last Admin: 08/16/18 21:03 Dose: 10 mg Buspirone HCl (Buspar) 5 mg PO DAILY [facility] Last Admin: 08/17/18 08:28 Dose: 5 mg Dextrose (Dextrose 50% Inj) 0 ml IV STAT PRN; Protocol PRN Reason: Hypoglycemia Protocol Dextrose (Glutose 15) 0 gm PO ONCE PRN; Protocol PRN Reason: Hypoglycemia Protocol Enoxaparin Sodium (Lovenox) 40 mg SC DAILY [facility]; Protocol Last Admin: 08/17/18 08:31 Dose: 40 mg Ergocalciferol (Drisdol 50,000 Intl Units Cap) 1 cap PO SUN [facility] Last Admin: 08/15/18 09:29 Dose: 1 cap Furosemide (Lasix) 40 mg PO DAILY [facility] Last Admin: 08/17/18 08:29 Dose: 40 mg Glucagon (Glucagen Diagnostic Kit) 0 mg IM STAT PRN; Protocol PRN Reason: Hypoglycemia Protocol Piperacillin Sod/Tazobactam (Sod 3.375 gm/ Sodium Chloride) 100 mls @ 100 mls/hr IVPB Q6H [facility]; Protocol Last Admin: 08/17/18 06:30 Dose: 100 mls/hr Vancomycin HCl 1 gm/ Sodium (Chloride) 250 mls @ 166.667 mls/hr IVPB Q12 [facility]; Protocol Last Admin: 08/17/18 09:43 Dose: 166.667 mls/hr Insulin Human Lispro (Humalog) 0 units SC ACHS [facility]; Protocol Last Admin: 08/16/18 21:35 Dose: Not Given Lisinopril (Zestril) 20 mg PO DAILY [facility] Last Admin: 08/17/18 08:31 Dose: 20 mg Metformin HCl (Glucophage) 1,000 mg PO BID [facility] Last Admin: 08/17/18 08:32 Dose: 1,000 mg Methylprednisolone (Solu-Medrol) 40 mg IVP Q8H [facility] Last Admin: 08/17/18 01:24 Dose: 40 mg Modafinil (Provigil) 200 mg PO DAILY [facility] Last Admin: 08/16/18 13:41 Dose: 200 mg Fluticasone/Salmeterol (Advair Diskus 250/50) 1 puff IH Q12 [facility] Last Admin: 08/17/18 08:27 Dose: 1 puff Sitagliptin Phosphate (Januvia) 100 mg PO DAILY [facility] Last Admin: 08/17/18 08:29 Dose: 100 mg Trazodone HCl (Desyrel) 100 mg PO HS [facility] Last Admin: 08/16/18 21:03 Dose: 100 mg - Labs Labs: 08/17/18 05:04 08/17/18 05:04 Attending/Attestation - Attestation I have personally seen and examined this patient.: Yes I have fully participated in the care of the patient.: Yes I have reviewed all pertinent clinical information, including history, physical exam and plan: Yes Notes (Text): 08/17/18 13:19 Patient seen and examined with resident. Case discussed and agreed with assessment and plan of management.
[2018-08-17] MEDS: Insulin Lispro (humaLOG) 100 Units/ml Inj SC SCH ×3 (17:45→21:38)
[2018-08-18] MEDS: Piperacillin/Tazobact 3.375 GM in Sodium Chloride 0.9% 100 ML IVPB SCH ×4 (01:15→17:44)
[2018-08-18] MEDS: MethylPREDNISolone 40 mg Vial IVP SCH (01:16)
[2018-08-18 05:48] VITALS: RESP 18
[2018-08-18 06:18] LABS: BLOOD UREA NITROGEN 22 mg/dl (9-20); CALCIUM 8.7 mg/dL (8.4-10.2); GFR NON-AFRICAN AMERICAN > 60
[2018-08-18 06:23] LABS: ABG ALLEN TEST YES; ARTERIAL BLOOD GAS HCO3 31.4 mmol/L (21-28); ARTERIAL BLOOD GAS HEMOGLOBIN 14.5 g/dL (11.7-17.4); ARTERIAL BLOOD GAS O2 CAPACITY 19.7 mL/dL (16-24); ARTERIAL BLOOD GAS O2 SAT 96.3 % (95-98); ARTERIAL BLOOD GAS PCO2 69 mm/Hg (35-45); ARTERIAL BLOOD GAS PH 7.34 (7.35-7.45); ARTERIAL BLOOD GAS PO2 71 mm/Hg (80-100); ARTERIAL BLOOD GAS TCO2 39.3 mmol/L (22-28)
[2018-08-18] MEDS: Albuterol-Ipratrop 3 mg / 0.5 (3 ml) UD INH SCH ×4 (07:27→19:16)
[2018-08-18] MEDS ORDERED: Sodium Chloride 0.9% 0 ML IV ONE (08:16)
[2018-08-18] MEDS ORDERED: Iohexol 300 100 ML IJ ONE (08:16)
[2018-08-18] MEDS: Enoxaparin 40 mg Syringe SC SCH (08:25)
[2018-08-18] MEDS: Fluticasone-Salmeterol 250-50mcg Diskus IH SCH ×2 (08:26→21:49)
[2018-08-18] MEDS: Insulin Lispro (humaLOG) 100 Units/ml Inj SC SCH ×4 (08:47→23:52)
--- NOTE | 2018-08-18 09:08 | CP.PCM.PN ---
Subjective - Date & Time of Evaluation Date of Evaluation: 08/18/18 Time of Evaluation: 09:10 - Subjective Subjective: MORE AWAKE AND ALERT CLINICALLY IMPROVED SOB IMPROVED NO COUGH ABGS AND CXR--IMPROVED Objective - Vital Signs/Intake and Output Vital Signs (last 24 hours): Temp Pulse Resp BP Pulse Ox 97.9 F 66 18 123/78 96 08/18/18 08:08 08/18/18 08:42 08/18/18 08:08 08/18/18 08:42 08/18/18 08:08 - Medications Medications: Current Medications Albuterol Sulfate (Albuterol 0.083% Inhal Yesenia (2.5 Mg/3 Ml) Ud) 2.5 mg INH RQ4 PRN PRN Reason: Shortness of Breath Last Admin: 08/15/18 23:36 Dose: 2.5 mg Albuterol/Ipratropium (Duoneb 3 Mg/0.5 Mg (3 Ml) Ud) 3 ml INH RQID [facility] Last Admin: 08/18/18 07:27 Dose: 3 ml Amlodipine Besylate (Norvasc) 5 mg PO DAILY [facility] Last Admin: 08/18/18 08:27 Dose: Not Given Atorvastatin Calcium (Lipitor) 10 mg PO HS [facility] Last Admin: 08/17/18 21:05 Dose: 10 mg Buspirone HCl (Buspar) 5 mg PO DAILY [facility] Last Admin: 08/18/18 08:27 Dose: 5 mg Dextrose (Dextrose 50% Inj) 0 ml IV STAT PRN; Protocol PRN Reason: Hypoglycemia Protocol Dextrose (Glutose 15) 0 gm PO ONCE PRN; Protocol PRN Reason: Hypoglycemia Protocol Enoxaparin Sodium (Lovenox) 40 mg SC DAILY [facility]; Protocol Last Admin: 08/18/18 08:25 Dose: 40 mg Ergocalciferol (Drisdol 50,000 Intl Units Cap) 1 cap PO SUN [facility] Last Admin: 08/15/18 09:29 Dose: 1 cap Furosemide (Lasix) 40 mg PO DAILY [facility] Last Admin: 08/18/18 08:26 Dose: 40 mg Glucagon (Glucagen Diagnostic Kit) 0 mg IM STAT PRN; Protocol PRN Reason: Hypoglycemia Protocol Piperacillin Sod/Tazobactam (Sod 3.375 gm/ Sodium Chloride) 100 mls @ 100 m ls/hr IVPB Q6H [facility]; Protocol Last Admin: 08/18/18 06:46 Dose: 100 mls/hr Vancomycin HCl 1 gm/ Sodium (Chloride) 250 mls @ 166.667 mls/hr IVPB Q12 [facility]; Protocol Last Admin: 08/18/18 08:34 Dose: 166.667 mls/hr Insulin Human Lispro (Humalog) 0 units SC ACHS [facility]; Protocol Last Admin: 08/18/18 08:47 Dose: 2 units Lisinopril (Zestril) 20 mg PO DAILY [facility] Last Admin: 08/18/18 08:42 Dose: 20 mg Metformin HCl (Glucophage) 1,000 mg PO BID [facility] Last Admin: 08/17/18 17:46 Dose: 1,000 mg Methylprednisolone (Solu-Medrol) 40 mg IVP Q8H [facility] Last Admin: 08/18/18 01:16 Dose: 40 mg Modafinil (Provigil) 200 mg PO DAILY [facility] Last Admin: 08/17/18 17:49 Dose: Not Given Fluticasone/Salmeterol (Advair Diskus 250/50) 1 puff IH Q12 [facility] Last Admin: 08/18/18 08:26 Dose: 1 puff Sitagliptin Phosphate (Januvia) 100 mg PO DAILY [facility] Last Admin: 08/18/18 08:26 Dose: 100 mg Trazodone HCl (Desyrel) 100 mg PO HS [facility] Last Admin: 08/17/18 21:04 Dose: 100 mg - Labs Labs: 08/17/18 05:04 08/18/18 04:25 - Constitutional Appears: No Acute Distress - Head Exam Head Exam: ATRAUMATIC, NORMAL INSPECTION, NORMOCEPHALIC - Eye Exam Eye Exam: EOMI, Normal appearance, PERRL Pupil Exam: NORMAL ACCOMODATION, PERRL - ENT Exam ENT Exam: Mucous Membranes Moist, Normal Exam - Neck Exam Neck Exam: Full ROM, Normal Inspection. absent: Lymphadenopathy - Respiratory Exam Respiratory Exam: Prolonged Expiratory Phase, Wheezes, NORMAL BREATHING PATTERN Additional comments: MILD WHEEZING - Cardiovascular Exam Cardiovascular Exam: REGULAR RHYTHM, +S1, +S2. absent: Murmur - GI/Abdominal Exam GI & Abdominal Exam: Soft, Normal Bowel Sounds. absent: Tenderness - Rectal Exam Rectal Exam: NORMAL INSPECTION - Extremities Exam Extremities Exam: Full ROM, Normal Capillary Refill, Normal Inspection. absent: Joint Swelling, Pedal Edema - Back Exam Back Exam: NORMAL INSPECTION - Neurological Exam Neurological Exam: Alert, Awake, CN II-XII Intact, Normal Gait, Oriented x3 - Psychiatric Exam Psychiatric exam: Normal Affect, Normal Mood - Skin Skin Exam: Dry, Intact, Normal Color, Warm Assessment and Plan - Assessment and Plan (Free Text) Assessment: RESPIRATORY FAILURE IMPROVED HYPOXEMIA IMPROVED PNEUMONIA-IMPROVING Plan: NO NEED FOR CT SCAN OF CHEST WITH CONTRAST FOR NOW[CONTRAST MAY EXACERBATE SOB AND BRONCHOSPASM] MAY CONTINUE PRESENT THERAPY TAPER STEROIDS OK TO D/C ON PO ANTIBIOTICS/PROVIGYL AND STEROIDS IN AM SCHEDULE FOR SLEEP STUDIES OUT PT
[2018-08-18 09:24] LABS: HEMOGLOBIN 13.7 g/dL (12.0-18.0); MEAN CORPUSCULAR HEMOGLOBIN 27.8 pg (27.0-31.0); MEAN CORPUSCULAR HGB CONC 30.6 g/dL (33.0-37.0); RBC 4.93 Mil/uL (4.40-5.90); RED CELL DISTRIBUTION WIDTH 16.3 % (11.5-14.5); WHITE BLOOD COUNT 9.2 K/uL (4.8-10.8)
[2018-08-18 09:26] LABS: MEAN CELL VOLUME 90.6 fl (80.0-94.0)
--- NOTE | 2018-08-18 09:51 | CP.PCM.PN ---
<Vernon MccratneyJose - Last Filed: 08/18/18 14:06> Subjective - Date & Time of Evaluation Date of Evaluation: 08/18/18 Time of Evaluation: 09:30 - Subjective Subjective: patient seen this AM at bedside, NAD, AAOx3, patient states feeling better and less SOB, he denies cough, palpitations, chest pain, abdominal pain, N/V/D. Objective - Vital Signs/Intake and Output Vital Signs (last 24 hours): Temp Pulse Resp BP Pulse Ox 97.9 F 66 18 123/78 96 08/18/18 08:08 08/18/18 08:42 08/18/18 08:08 08/18/18 08:42 08/18/18 08:08 - Medications Medications: Current Medications Albuterol Sulfate (Albuterol 0.083% Inhal Yesenia (2.5 Mg/3 Ml) Ud) 2.5 mg INH RQ4 PRN PRN Reason: Shortness of Breath Last Admin: 08/15/18 23:36 Dose: 2.5 mg Albuterol/Ipratropium (Duoneb 3 Mg/0.5 Mg (3 Ml) Ud) 3 ml INH RQID [facility] Last Admin: 08/18/18 07:27 Dose: 3 ml Amlodipine Besylate (Norvasc) 5 mg PO DAILY [facility] Last Admin: 08/18/18 08:27 Dose: Not Given Atorvastatin Calcium (Lipitor) 10 mg PO HS [facility] Last Admin: 08/17/18 21:05 Dose: 10 mg Buspirone HCl (Buspar) 5 mg PO DAILY [facility] Last Admin: 08/18/18 08:27 Dose: 5 mg Dextrose (Dextrose 50% Inj) 0 ml IV STAT PRN; Protocol PRN Reason: Hypoglycemia Protocol Dextrose (Glutose 15) 0 gm PO ONCE PRN; Protocol PRN Reason: Hypoglycemia Protocol Enoxaparin Sodium (Lovenox) 40 mg SC DAILY [facility]; Protocol Last Admin: 08/18/18 08:25 Dose: 40 mg Ergocalciferol (Drisdol 50,000 Intl Units Cap) 1 cap PO SUN [facility] Last Admin: 08/15/18 09:29 Dose: 1 cap Furosemide (Lasix) 40 mg PO DAILY [facility] Last Admin: 08/18/18 08:26 Dose: 40 mg Glucagon (Glucagen Diagnostic Kit) 0 mg IM STAT PRN; Protocol PRN Reason: Hypoglycemia Protocol Piperacillin Sod/Tazobactam (Sod 3.375 gm/ Sodium Chloride) 100 mls @ 100 mls/hr IVPB Q6H [facility]; Protocol Last Admin: 08/18/18 06:46 Dose: 100 mls/hr Vancomycin HCl 1 gm/ Sodium (Chloride) 250 mls @ 166.667 mls/hr IVPB Q12 [facility]; Protocol Last Admin: 08/18/18 08:34 Dose: 166.667 mls/hr Insulin Human Lispro (Humalog) 0 units SC ACHS [facility]; Protocol Last Admin: 08/18/18 08:47 Dose: 2 units Lisinopril (Zestril) 20 mg PO DAILY [facility] Last Admin: 08/18/18 08:42 Dose: 20 mg Metformin HCl (Glucophage) 1,000 mg PO BID [facility] Last Admin: 08/17/18 17:46 Dose: 1,000 mg Methylprednisolone (Solu-Medrol) 40 mg IVP DAILY [facility] Modafinil (Provigil) 200 mg PO DAILY [facility] Last Admin: 08/18/18 09:39 Dose: 200 mg Fluticasone/Salmeterol (Advair Diskus 250/50) 1 puff IH Q12 [facility] Last Admin: 08/18/18 08:26 Dose: 1 puff Sitagliptin Phosphate (Januvia) 100 mg PO DAILY [facility] Last Admin: 08/18/18 08:26 Dose: 100 mg Trazodone HCl (Desyrel) 100 mg PO HS [facility] Last Admin: 08/17/18 21:04 Dose: 100 mg - Labs Labs: 08/18/18 04:25 08/18/18 04:25 - Constitutional Appears: No Acute Distress - Head Exam Head Exam: ATRAUMATIC, NORMOCEPHALIC - Eye Exam Eye Exam: EOMI - ENT Exam ENT Exam: Mucous Membranes Moist - Respiratory Exam Respiratory Exam: Rhonchi (Good air entry b/l, some isolated rhonchi. Improved ) - Cardiovascular Exam Cardiovascular Exam: RRR, +S1, +S2 - GI/Abdominal Exam GI & Abdominal Exam: Normal Bowel Sounds - Extremities Exam Extremities Exam: Pedal Edema - Neurological Exam Neurological Exam: Alert, Awake, Normal Gait, Oriented x3 - Psychiatric Exam Psychiatric exam: Normal Affect, Normal Mood - Skin Skin Exam: Normal Color, Warm Assessment and Plan - Assessment and Plan (Free Text) Assessment: 63 Y/O Male with PMHx of HTN, T2DM, Obesity, Depression, Arthritis and CKD, presenting to the ED with c/o cough, weakness and SOB for approximately 3 days. Patient was found in the ED to have a leukocytois with bands 4%, CXR with b/l infiltrate opacities, hypercapnia and hypoxemia and was admitted with Hyper capneic Respiratory failure secondary to PNA. Patient at this time is noted with significant clinical improvement despite ABG results, case d/w pulmo Dr Hendricks, will start planning for d/c patient on PO Steroids, Antibx for completion of PNA Rx, and Provigil in AM. Patient will need Sleep studies as outpatient upon discharge and pulmonary f/u. Plan: Hypercapnic-hypoxemic Respiratory Failure - Alert today, clinically improvement noted, despite ABG hipercapneic and hypo xemia. - Patient might need sleep studies as outpatient. - 2/2 to b/l pneumonia, with obesity hypoventilation syndome -Provigil 200 added as per Pulmo recommendation to stimulate pt to keep alert an d improve respiration during the day -BiPAP setting IPAP 12, EPAP 6, FIO2 75, Rate 18 -ABG improved PCO2 69 pO2 71 -Pulmonology consult, Dr Hendricks, Recommendations appreciated -C/W Duonebs neb inh -Steroids tx and taper off Respiratory Acidosis -Improved -pCO2 69 today -pH: 7.34 today (7.21 on admission) -c/w BiPaP and supplemental O2 -Pt agreeable to intubation if fails Non-invasive management -f/u ABG Bilateral Pneumonia -improving -afebrile -leukocytosis normalized -Procalcitonin: 1.11 -Sputum culture ordered, f/u results -Legionella urine Ag, negative -Mycoplasma Ag negative -C/w Zosym 3.375 Q6h IV -C/W Vanco IV -C/w Zithro Sepsis -resolved -lactic acid down to 1.7 NIDDM2 -controlled -HBA1C 6.3 - home PO meds resumed -Lispro Correction scale Hypertension -stable -C/w Lisinopril -C/w Norvasc -monitor BP Obesity -BMI 43.6 Transaminemia -Resolved History of Depression -c/w Trazodone, dose adjusted 150 to 100 due to wsyness -Buspar-Hold -Temazepam 30-Hold DVT PPx: Lovenox 40 SC QD Code Status Full Code <Randell Resendez D - Last Filed: 08/18/18 14:15> Objective - Vital Signs/Intake and Output Vital Signs (last 24 hours): Temp Pulse Resp BP Pulse Ox 97.1 F L 74 18 122/78 90 L 08/18/18 11:51 08/18/18 11:51 08/18/18 11:51 08/18/18 11:51 08/18/18 11:51 - Medications Medications: Current Medications Albuterol Sulfate (Albuterol 0.083% Inhal Yesenia (2.5 Mg/3 Ml) Ud) 2.5 mg INH RQ4 PRN PRN Reason: Shortness of Breath Last Admin: 08/15/18 23:36 Dose: 2.5 mg Albuterol/Ipratropium (Duoneb 3 Mg/0.5 Mg (3 Ml) Ud) 3 ml INH RQID [facility] Last Admin: 08/18/18 11:07 Dose: 3 ml Amlodipine Besylate (Norvasc) 5 mg PO DAILY [facility] Last Admin: 08/18/18 08:27 Dose: Not Given Atorvastatin Calcium (Lipitor) 10 mg PO HS [facility] Last Admin: 08/17/18 21:05 Dose: 10 mg Buspirone HCl (Buspar) 5 mg PO DAILY [facility] Last Admin: 08/18/18 08:27 Dose: 5 mg Dextrose (Dextrose 50% Inj) 0 ml IV STAT PRN; Protocol PRN Reason: Hypoglycemia Protocol Dextrose (Glutose 15) 0 gm PO ONCE PRN; Protocol PRN Reason: Hypoglycemia Protocol Enoxaparin Sodium (Lovenox) 40 mg SC DAILY [facility]; Protocol Last Admin: 08/18/18 08:25 Dose: 40 mg Ergocalciferol (Drisdol 50,000 Intl Units Cap) 1 cap PO SUN [facility] Last Admin: 08/15/18 09:29 Dose: 1 cap Furosemide (Lasix) 40 mg PO DAILY [facility] Last Admin: 08/18/18 08:26 Dose: 40 mg Glucagon (Glucagen Diagnostic Kit) 0 mg IM STAT PRN; Protocol PRN Reason: Hypoglycemia Protocol Piperacillin Sod/Tazobactam (Sod 3.375 gm/ Sodium Chloride) 100 mls @ 100 mls/hr IVPB Q6H [facility]; Protocol Last Admin: 08/18/18 12:08 Dose: 100 mls/hr Vancomycin HCl 1 gm/ Sodium (Chloride) 250 mls @ 166.667 mls/hr IVPB Q12 [facility]; Protocol Last Admin: 08/18/18 08:34 Dose: 166.667 mls/hr Azithromycin 500 mg/ Sodium (Chloride) 250 mls @ 250 mls/hr IVPB DAILY [facility]; Protocol Insulin Human Lispro (Humalog) 0 units SC ACHS [facility]; Protocol Last Admin: 08/18/18 12:19 Dose: 2 units Lisinopril (Zestril) 10 mg PO DAILY [facility] Metformin HCl (Glucophage) 1,000 mg PO BID [facility] Last Admin: 08/17/18 17:46 Dose: 1,000 mg Methylprednisolone (Solu-Medrol) 40 mg IVP DAILY [facility] Modafinil (Provigil) 200 mg PO DAILY [facility] Last Admin: 08/18/18 09:39 Dose: 200 mg Fluticasone/Salmeterol (Advair Diskus 250/50) 1 puff IH Q12 [facility] Last Admin: 08/18/18 08:26 Dose: 1 puff Sitagliptin Phosphate (Januvia) 100 mg PO DAILY [facility] Last Admin: 08/18/18 08:26 Dose: 100 mg Trazodone HCl (Desyrel) 100 mg PO HS [facility] Last Admin: 08/17/18 21:04 Dose: 100 mg - Labs Labs: 08/18/18 04:25 08/18/18 04:25 Attending/Attestation - Attestation I have personally seen and examined this patient.: Yes I have fully participated in the care of the patient.: Yes I have reviewed all pertinent clinical information, including history, physical exam and plan: Yes Notes (Text): 08/18/18 14:14 Patient seen and examined with resident. Appeared and admitted feeling better although with slight wheezing. Plan for discharge tomorrow.
[2018-08-18] MEDS: Azithromycin 500 MG in Sodium Chloride 0.9% 250 ML IVPB SCH (16:26)
[2018-08-19] MEDS: Piperacillin/Tazobact 3.375 GM in Sodium Chloride 0.9% 100 ML IVPB SCH ×2 (00:58→06:13)
[2018-08-19 06:13] LABS: BLOOD UREA NITROGEN 19 mg/dl (9-20); CALCIUM 8.5 mg/dL (8.4-10.2); GFR NON-AFRICAN AMERICAN > 60
[2018-08-19] MEDS: Insulin Lispro (humaLOG) 100 Units/ml Inj SC SCH (06:37)
[2018-08-19] MEDS: Albuterol-Ipratrop 3 mg / 0.5 (3 ml) UD INH SCH ×2 (07:34→11:36)
[2018-08-19 08:02] VITALS: BP 133/79; PULSE 65; TEMP 97.9; O2SAT 97
[2018-08-19] MEDS: Azithromycin 500 MG in Sodium Chloride 0.9% 250 ML IVPB SCH (08:37)
[2018-08-19] MEDS: Fluticasone-Salmeterol 250-50mcg Diskus IH SCH (08:39)
[2018-08-19] MEDS: Enoxaparin 40 mg Syringe SC SCH (08:40)
[2018-08-19] MEDS ORDERED: MethylPREDNISolone 40 mg Vial IVP SCH (09:00)
--- NOTE | 2018-08-19 09:10 | CP.PCM.PN ---
Subjective - Date & Time of Evaluation Date of Evaluation: 08/19/18 Time of Evaluation: 09:11 - Subjective Subjective: CLINICALLY IMPROVED SOB RESOLVED ALERT AND ORIENTED X 3 Objective - Vital Signs/Intake and Output Vital Signs (last 24 hours): Temp Pulse Resp BP Pulse Ox 97.9 F 65 18 133/79 97 08/19/18 08:02 08/19/18 08:40 08/19/18 08:02 08/19/18 08:40 08/19/18 08:02 - Medications Medications: Current Medications Albuterol Sulfate (Albuterol 0.083% Inhal [place] (2.5 Mg/3 Ml) Ud) 2.5 mg INH RQ4 PRN PRN Reason: Shortness of Breath Last Admin: 08/15/18 23:36 Dose: 2.5 mg Albuterol/Ipratropium (Duoneb 3 Mg/0.5 Mg (3 Ml) Ud) 3 ml INH RQID [facility] Last Admin: 08/19/18 07:34 Dose: 3 ml Amlodipine Besylate (Norvasc) 5 mg PO DAILY [facility] Last Admin: 08/19/18 08:40 Dose: 5 mg Atorvastatin Calcium (Lipitor) 10 mg PO HS [facility] Last Admin: 08/18/18 21:49 Dose: 10 mg Buspirone HCl (Buspar) 5 mg PO DAILY [facility] Last Admin: 08/19/18 08:42 Dose: 5 mg Dextrose (Dextrose 50% Inj) 0 ml IV STAT PRN; Protocol PRN Reason: Hypoglycemia Protocol Dextrose (Glutose 15) 0 gm PO ONCE PRN; Protocol PRN Reason: Hypoglycemia Protocol Ergocalciferol (Drisdol 50,000 Intl Units Cap) 1 cap PO SUN [facility] Last Admin: 08/15/18 09:29 Dose: 1 cap Furosemide (Lasix) 40 mg PO DAILY [facility] Last Admin: 08/19/18 08:39 Dose: 40 mg Glucagon (Glucagen Diagnostic Kit) 0 mg IM STAT PRN; Protocol PRN Reason: Hypoglycemia Protocol Piperacillin Sod/Tazobactam (Sod 3.375 gm/ Sodium Chloride) 100 mls @ 100 mls/hr IVPB Q6H [facility]; Protocol Last Admin: 08/19/18 06:13 Dose: 100 mls/hr Vancomycin HCl 1 gm/ Sodium (Chloride) 250 mls @ 166.667 mls/hr IVPB Q12 [facility]; Protocol Last Admin: 08/19/18 08:38 Dose: 166.667 mls/hr Azithromycin 500 mg/ Sodium (Chloride) 250 mls @ 250 mls/hr IVPB DAILY [facility]; Protocol Last Admin: 08/19/18 08:37 Dose: 250 mls/hr Insulin Human Lispro (Humalog) 0 units SC ACHS [facility]; Protocol Last Admin: 08/19/18 06:37 Dose: Not Given Lisinopril (Zestril) 10 mg PO DAILY [facility] Last Admin: 08/19/18 08:39 Dose: 10 mg Metformin HCl (Glucophage) 1,000 mg PO BID [facility] Last Admin: 08/17/18 17:46 Dose: 1,000 mg Methylprednisolone (Solu-Medrol) 40 mg IVP DAILY [facility] Last Admin: 08/19/18 08:43 Dose: 40 mg Modafinil (Provigil) 200 mg PO DAILY [facility] Last Admin: 08/18/18 09:39 Dose: 200 mg Fluticasone/Salmeterol (Advair Diskus 250/50) 1 puff IH Q12 [facility] Last Admin: 08/19/18 08:39 Dose: 1 puff Sitagliptin Phosphate (Januvia) 100 mg PO DAILY [facility] Last Admin: 08/19/18 08:41 Dose: 100 mg Trazodone HCl (Desyrel) 100 mg PO HS [facility] Last Admin: 08/18/18 21:49 Dose: 100 mg - Labs Labs: 08/18/18 04:25 08/19/18 04:25 - Constitutional Appears: Well - Head Exam Head Exam: ATRAUMATIC, NORMAL INSPECTION, NORMOCEPHALIC - Eye Exam Eye Exam: EOMI, Normal appearance, PERRL Pupil Exam: NORMAL ACCOMODATION, PERRL - ENT Exam ENT Exam: Mucous Membranes Moist, Normal Exam - Neck Exam Neck Exam: Full ROM, Normal Inspection. absent: Lymphadenopathy - Respiratory Exam Respiratory Exam: Clear to Ausculation Bilateral, Prolonged Expiratory Phase, NORMAL BREATHING PATTERN - Cardiovascular Exam Cardiovascular Exam: REGULAR RHYTHM, +S1, +S2. absent: Murmur - GI/Abdominal Exam GI & Abdominal Exam: Soft, Normal Bowel Sounds. absent: Tenderness - Rectal Exam Rectal Exam: NORMAL INSPECTION - Extremities Exam Extremities Exam: Full ROM, Normal Capillary Refill, Normal Inspection. absent: Joint Swelling, Pedal Edema - Back Exam Back Exam: NORMAL INSPECTION - Neurological Exam Neurological Exam: Alert, Awake, CN II-XII Intact, Normal Gait, Oriented x3 - Psychiatric Exam Psychiatric exam: Normal Affect, Normal Mood - Skin Skin Exam: Dry, Intact, Normal Color, Warm Assessment and Plan - Assessment and Plan (Free Text) Assessment: RESPIRATORY FAILURE RESOLVED Plan: OK TO D/C TODAY REFER FOR OUTPT SLEEP STUDIES WITH VIEW TO OBTAINING CPAP MACHINE WILL SIGN OFF CASE AND SEE AGAIN AT YOUR REQUEST
--- NOTE | 2018-08-19 10:40 | CP.PCM.DIS ---
<Vernon MccartneyJose - Last Filed: 08/19/18 18:45> Provider - Provider Date of Admission: 08/12/18 11:43 Attending physician: Randell Resendez MD Time Spent in preparation of Discharge (in minutes): 33 Diagnosis - Discharge Diagnosis (1) Pneumonia Status: Acute (2) Respiratory failure Status: Acute (3) Sepsis Status: Acute (4) Diabetes mellitus Status: Chronic Hospital Course - Lab Results Lab Results: Micro Results 08/12/18 13:35 Blood Blood Culture - Final NO GROWTH AFTER 5 DAYS 08/12/18 13:35 Blood Gram Stain - Final TEST NOT PERFORMED 08/12/18 10:48 Blood Blood Culture - Final NO GROWTH AFTER 5 DAYS 08/12/18 10:48 Blood Gram Stain - Final TEST NOT PERFORMED Most Recent Lab Values WBC 9.2 K/uL (4.8-10.8) 08/18/18 04:25 RBC 4.93 Mil/uL (4.40-5.90) 08/18/18 04:25 Hgb 13.7 g/dL (12.0-18.0) 08/18/18 04:25 Hct 44.7 % (35.0-51.0) 08/18/18 04:25 MCV 90.6 fl (80.0-94.0) D 08/18/18 04:25 MCH 27.8 pg (27.0-31.0) 08/18/18 04:25 MCHC 30.6 g/dL (33.0-37.0) L 08/18/18 04:25 RDW 16.3 % (11.5-14.5) H 08/18/18 04:25 Plt Count 248 K/uL (130-400) 08/18/18 04:25 MPV 8.3 fl (7.2-11.7) 08/16/18 04:20 Neut % (Auto) 74.7 % (50.0-75.0) 08/16/18 04:20 Lymph % (Auto) 12.0 % (20.0-40.0) L 08/16/18 04:20 [place] % (Auto) 13.1 % (0.0-10.0) H 08/16/18 04:20 Eos % (Auto) 0.0 % (0.0-4.0) 08/16/18 04:20 Baso % (Auto) 0.2 % (0.0-2.0) 08/16/18 04:20 Neut # (Auto) 7.7 K/uL (1.8-7.0) H 08/16/18 04:20 Lymph # (Auto) 1.2 K/uL (1.0-4.3) 08/16/18 04:20 [place] # (Auto) 1.3 K/uL (0.0-0.8) H 08/16/18 04:20 Eos # (Auto) 0.0 K/uL (0.0-0.7) 08/16/18 04:20 Baso # (Auto) 0.0 K/uL (0.0-0.2) 08/16/18 04:20 Neutrophils % (Manual) 86 % (42-75) H 08/14/18 05:15 Band Neutrophils % 4 % (0-2) H 08/14/18 05:15 Lymphocytes % (Manual) 4 % (20-50) L 08/14/18 05:15 Monocytes % (Manual) 6 % (0-10) 08/14/18 05:15 Platelet Estimate Normal (NORMAL) 08/14/18 05:15 Anisocytosis (manual) Slight 08/14/18 05:15 Macrocytosis (manual) Slight 08/13/18 04:20 pCO2 69 mm/Hg (35-45) H 08/18/18 05:14 pO2 71 mm/Hg (80-100) L 08/18/18 05:14 HCO3 31.4 mmol/L (21-28) H 08/18/18 05:14 ABG pH 7.34 (7.35-7.45) L 08/18/18 05:14 ABG Total CO2 39.3 mmol/L (22-28) H 08/18/18 05:14 ABG O2 Saturation 96.3 % (95-98) 08/18/18 05:14 ABG O2 Content 19.0 ML/dL (15-23) 08/18/18 05:14 ABG Base Excess 8.5 mmol/L (-2.0-3.0) H 08/18/18 05:14 ABG Hemoglobin 14.5 g/dL (11.7-17.4) 08/18/18 05:14 ABG Carboxyhemoglobin 1.9 % (0.5-1.5) H 08/18/18 05:14 POC ABG HHb (Measured) 3.6 % (0.0-5.0) 08/18/18 05:14 ABG Methemoglobin 1.3 % (0.0-3.0) 08/18/18 05:14 ABG O2 Capacity 19.7 mL/dL (16-24) 08/18/18 05:14 Harpreet Test Yes 08/18/18 05:14 ABG Potassium 4.1 mmol/L (3.6-5.2) 08/14/18 08:50 VBG pH 7.20 (7.32-7.43) L 08/12/18 11:00 VBG pCO2 74 mmHg (40-60) H* 08/12/18 11:00 VBG HCO3 23.4 mmol/L 08/12/18 11:00 VBG Total CO2 31.2 mmol/L (22-28) H 08/12/18 11:00 VBG O2 Sat (Calc) 82.4 % (40-65) H 08/12/18 11:00 VBG Base Excess -1.1 mmol/L (0.0-2.0) L 08/12/18 11:00 VBG Potassium 4.5 mmol/L (3.6-5.2) 08/12/18 11:00 A-a O2 Difference 378.0 mm/Hg 08/18/18 05:14 Hgb O2 Saturation 93.2 % (95.0-98.0) L 08/18/18 05:14 Sodium 133.0 mmol/L (132-148) 08/14/18 08:50 Chloride 92.0 mmol/L (98-107) L 08/14/18 08:50 Glucose 214 mg/dL (75-110) H 08/14/18 08:50 Lactate 1.7 mmol/L (0.7-2.1) 08/14/18 08:50 Vent Mode Bipap 08/18/18 05:14 Mechanical Rate 18 08/18/18 05:14 FiO2 75.0 % 08/18/18 05:14 Inspiratory BiPAP 12 08/18/18 05:14 Expiratory BiPAP 6 08/18/18 05:14 Crit Value Called To andrey Berg 08/16/18 12:23 Crit Value Called By 08/16/18 12:23 Crit Value Read Back Y 08/16/18 12:23 Blood Gas Notified Time 1229 08/16/18 12:23 Sodium 138 mmol/l (132-148) 08/19/18 04:25 Potassium 3.7 MMOL/L (3.6-5.0) 08/19/18 04:25 Chloride 98 mmol/L (98-107) 08/19/18 04:25 Carbon Dioxide 38 mmol/L (22-30) H 08/19/18 04:25 Anion Gap 6 (10-20) L 08/19/18 04:25 BUN 19 mg/dl (9-20) 08/19/18 04:25 Creatinine 0.8 mg/dl (0.8-1.5) 08/19/18 04:25 Est GFR ( Amer) > 60 08/19/18 04:25 Est GFR (Non-Af Amer) > 60 08/19/18 04:25 POC Glucose (mg/dL) 116 mg/dL (65-110) H 08/18/18 21:36 Random Glucose 119 mg/dL (75-110) H 08/19/18 04:25 Hemoglobin A1c 6.3 % (4.2-6.5) 08/13/18 04:20 Calcium 8.5 mg/dL (8.4-10.2) 08/19/18 04:25 Total Bilirubin 0.4 mg/dl (0.2-1.3) 08/15/18 05:30 AST 48 U/L (17-59) 08/15/18 05:30 ALT 70 U/L (21-72) 08/15/18 05:30 Alkaline Phosphatase 96 U/L (38-126) 08/15/18 05:30 NT-Pro-B Natriuret Pep 367 pg/ml (0-900) 08/14/18 11:16 Total Protein 7.6 G/DL (6.3-8.2) 08/15/18 05:30 Albumin 3.8 g/dL (3.5-5.0) 08/15/18 05:30 Globulin 3.9 gm/dL (2.2-3.9) 08/15/18 05:30 Albumin/Globulin Ratio 1.0 (1.0-2.1) 08/15/18 05:30 Procalcitonin 1.11 NG/ML (0.19-0.49) H 08/12/18 13:35 Thyroxine (T4) 6.46 ug/dl (5.5-11.0) 08/16/18 08:57 TSH 3rd Generation 0.79 mIU/ML (0.46-4.68) 08/16/18 04:20 Arterial Blood Potassium 4.1 mmol/L (3.6-5.2) 08/14/18 08:50 Venous Blood Potassium 4.5 mmol/L (3.6-5.2) 08/12/18 11:00 Vancomycin Trough 5.6 ug/mL (5.0-10.0) 08/16/18 08:47 Random Vancomycin < 5.0 ug/mL 08/13/18 04:20 Influenza Typ A,B (EIA) Negative for flu a/b (NEGATIVE) 08/12/18 11:20 Ur L.pneumophila Ag Negative (NEGATIVE) 08/12/18 20:45 Mycoplasma pneumon IgG <=0.90 (<=0.90) 08/13/18 14:12 Mycoplasma pneumon IgM 155 U/mL (<770) 08/13/18 14:12 - Hospital Course Hospital Course: 63 Y/O Male with PMHx of HTN, T2DM, Obesity, Depression, Arthritis and CKD, presenting to the ED with c/o cough, weakness and SOB for approximately 3 days. Patient was found in the ED to have a leukocytois with bands 4%, CXR with b/l infiltrate opacities, hypercapnia and hypoxemia and was admitted on 08/12/18 with Hypercapneic Respiratory failure secondary to PNA. During his Hptal stay patient was evaluated by [facility] Dr Hendricks, patient recived tretament with IV antibx for 8 days, was put on BiPAP. Patient had a progressive improvement and was found and cleared by Pulmo to be discahrge home and continue tx outpatient with PO antibx, Steroids PO taper down dose, also patient is instructed to f/u with PMD in 2 to 3 days and with [employer] Dr Hendricks within 1 week. Patient today examined at bedside, chart reviewed, patient hemodinamically stable and denies chest pain, SOB, abdominal pain fever,or any other acute medical complain at this time. Ed instructions given to patient: Return to the ED if you have fever, feel SOB, chest pain or foe any other concerning symptom. MEds on D/C: see D/C meds section. Discharge Exam - Head Exam Head Exam: ATRAUMATIC, NORMAL INSPECTION, NORMOCEPHALIC - Eye Exam Eye Exam: EOMI - ENT Exam ENT Exam: Mucous Membranes Moist - Respiratory Exam Respiratory Exam: Rhonchi (Good air entry, isolated rhonchi) - Cardiovascular Exam Cardiovascular Exam: RRR, +S1, +S2 - GI/Abdominal Exam GI & Abdominal Exam: Normal Bowel Sounds. absent: Tenderness - Extremities Exam Extremities exam: pedal edema - Neurological Exam Neurological exam: Alert, Normal Gait, Oriented x3 - Psychiatric Exam Psychiatric exam: Normal Affect, Normal Mood - Skin Skin Exam: Normal Color, Warm Discharge Plan - Discharge Medications Prescriptions: Amoxicillin/Clavulanate [Augmentin 875 MG-125 MG] 1 tab PO BID #20 tab Azithromycin [Zithromax] 500 mg PO DAILY #7 tablet Methylprednisolone [Medrol Dose Pack (21 tabs)] 4 mg PO ASDIR #21 mg - Follow Up Plan Condition: FAIR Disposition: HOME/ ROUTINE Instructions: Pneumonia, Adult (DC), Respiratory Distress Syndrome, Adult (DC) Additional Instructions: follow up with on thursday08/23/18 at 2:00pm Referrals: Caden Kraft [Staff Provider] - (.....) Andrey Hendricks MD [Staff Provider] - <Randell Resendez - Last Filed: 08/19/18 19:00> Provider - Provider Date of Admission: 08/12/18 11:43 Attending physician: Randell Resendez MD Hospital Course - Lab Results Lab Results: Micro Results 08/12/18 13:35 Blood Blood Culture - Final NO GROWTH AFTER 5 DAYS 08/12/18 13:35 Blood Gram Stain - Final TEST NOT PERFORMED 08/12/18 10:48 Blood Blood Culture - Final NO GROWTH AFTER 5 DAYS 08/12/18 10:48 Blood Gram Stain - Final TEST NOT PERFORMED Most Recent Lab Values WBC 9.2 K/uL (4.8-10.8) 08/18/18 04:25 RBC 4.93 Mil/uL (4.40-5.90) 08/18/18 04:25 Hgb 13.7 g/dL (12.0-18.0) 08/18/18 04:25 Hct 44.7 % (35.0-51.0) 08/18/18 04:25 MCV 90.6 fl (80.0-94.0) D 08/18/18 04:25 MCH 27.8 pg (27.0-31.0) 08/18/18 04:25 MCHC 30.6 g/dL (33.0-37.0) L 08/18/18 04:25 RDW 16.3 % (11.5-14.5) H 08/18/18 04:25 Plt Count 248 K/uL (130-400) 08/18/18 04:25 MPV 8.3 fl (7.2-11.7) 08/16/18 04:20 Neut % (Auto) 74.7 % (50.0-75.0) 08/16/18 04:20 Lymph % (Auto) 12.0 % (20.0-40.0) L 08/16/18 04:20 [place] % (Auto) 13.1 % (0.0-10.0) H 08/16/18 04:20 Eos % (Auto) 0.0 % (0.0-4.0) 08/16/18 04:20 Baso % (Auto) 0.2 % (0.0-2.0) 08/16/18 04:20 Neut # (Auto) 7.7 K/uL (1.8-7.0) H 08/16/18 04:20 Lymph # (Auto) 1.2 K/uL (1.0-4.3) 08/16/18 04:20 [place] # (Auto) 1.3 K/uL (0.0-0.8) H 08/16/18 04:20 Eos # (Auto) 0.0 K/uL (0.0-0.7) 08/16/18 04:20 Baso # (Auto) 0.0 K/uL (0.0-0.2) 08/16/18 04:20 Neutrophils % (Manual) 86 % (42-75) H 08/14/18 05:15 Band Neutrophils % 4 % (0-2) H 08/14/18 05:15 Lymphocytes % (Manual) 4 % (20-50) L 08/14/18 05:15 Monocytes % (Manual) 6 % (0-10) 08/14/18 05:15 Platelet Estimate Normal (NORMAL) 08/14/18 05:15 Anisocytosis (manual) Slight 08/14/18 05:15 Macrocytosis (manual) Slight 08/13/18 04:20 pCO2 69 mm/Hg (35-45) H 08/18/18 05:14 pO2 71 mm/Hg (80-100) L 08/18/18 05:14 HCO3 31.4 mmol/L (21-28) H 08/18/18 05:14 ABG pH 7.34 (7.35-7.45) L 08/18/18 05:14 ABG Total CO2 39.3 mmol/L (22-28) H 08/18/18 05:14 ABG O2 Saturation 96.3 % (95-98) 08/18/18 05:14 ABG O2 Content 19.0 ML/dL (15-23) 08/18/18 05:14 ABG Base Excess 8.5 mmol/L (-2.0-3.0) H 08/18/18 05:14 ABG Hemoglobin 14.5 g/dL (11.7-17.4) 08/18/18 05:14 ABG Carboxyhemoglobin 1.9 % (0.5-1.5) H 08/18/18 05:14 POC ABG HHb (Measured) 3.6 % (0.0-5.0) 08/18/18 05:14 ABG Methemoglobin 1.3 % (0.0-3.0) 08/18/18 05:14 ABG O2 Capacity 19.7 mL/dL (16-24) 08/18/18 05:14 Harpreet Test Yes 08/18/18 05:14 ABG Potassium 4.1 mmol/L (3.6-5.2) 08/14/18 08:50 VBG pH 7.20 (7.32-7.43) L 08/12/18 11:00 VBG pCO2 74 mmHg (40-60) H* 08/12/18 11:00 VBG HCO3 23.4 mmol/L 08/12/18 11:00 VBG Total CO2 31.2 mmol/L (22-28) H 08/12/18 11:00 VBG O2 Sat (Calc) 82.4 % (40-65) H 08/12/18 11:00 VBG Base Excess -1.1 mmol/L (0.0-2.0) L 08/12/18 11:00 VBG Potassium 4.5 mmol/L (3.6-5.2) 08/12/18 11:00 A-a O2 Difference 378.0 mm/Hg 08/18/18 05:14 Hgb O2 Saturation 93.2 % (95.0-98.0) L 08/18/18 05:14 Sodium 133.0 mmol/L (132-148) 08/14/18 08:50 Chloride 92.0 mmol/L (98-107) L 08/14/18 08:50 Glucose 214 mg/dL (75-110) H 08/14/18 08:50 Lactate 1.7 mmol/L (0.7-2.1) 08/14/18 08:50 Vent Mode Bipap 08/18/18 05:14 Mechanical Rate 18 08/18/18 05:14 FiO2 75.0 % 08/18/18 05:14 Inspiratory BiPAP 12 08/18/18 05:14 Expiratory BiPAP 6 08/18/18 05:14 Crit Value Called To andrey Berg 08/16/18 12:23 Crit Value Called By 22 08/16/18 12:23 Crit Value Read Back Y 08/16/18 12:23 Blood Gas Notified Time 1229 08/16/18 12:23 Sodium 138 mmol/l (132-148) 08/19/18 04:25 Potassium 3.7 MMOL/L (3.6-5.0) 08/19/18 04:25 Chloride 98 mmol/L (98-107) 08/19/18 04:25 Carbon Dioxide 38 mmol/L (22-30) H 08/19/18 04:25 Anion Gap 6 (10-20) L 08/19/18 04:25 BUN 19 mg/dl (9-20) 08/19/18 04:25 Creatinine 0.8 mg/dl (0.8-1.5) 08/19/18 04:25 Est GFR ( Amer) > 60 08/19/18 04:25 Est GFR (Non-Af Amer) > 60 08/19/18 04:25 POC Glucose (mg/dL) 254 mg/dL (65-110) H 08/19/18 10:44 Random Glucose 119 mg/dL (75-110) H 08/19/18 04:25 Hemoglobin A1c 6.3 % (4.2-6.5) 08/13/18 04:20 Calcium 8.5 mg/dL (8.4-10.2) 08/19/18 04:25 Total Bilirubin 0.4 mg/dl (0.2-1.3) 08/15/18 05:30 AST 48 U/L (17-59) 08/15/18 05:30 ALT 70 U/L (21-72) 08/15/18 05:30 Alkaline Phosphatase 96 U/L (38-126) 08/15/18 05:30 NT-Pro-B Natriuret Pep 367 pg/ml (0-900) 08/14/18 11:16 Total Protein 7.6 G/DL (6.3-8.2) 08/15/18 05:30 Albumin 3.8 g/dL (3.5-5.0) 08/15/18 05:30 Globulin 3.9 gm/dL (2.2-3.9) 08/15/18 05:30 Albumin/Globulin Ratio 1.0 (1.0-2.1) 08/15/18 05:30 Procalcitonin 1.11 NG/ML (0.19-0.49) H 08/12/18 13:35 Thyroxine (T4) 6.46 ug/dl (5.5-11.0) 08/16/18 08:57 TSH 3rd Generation 0.79 mIU/ML (0.46-4.68) 08/16/18 04:20 Arterial Blood Potassium 4.1 mmol/L (3.6-5.2) 08/14/18 08:50 Venous Blood Potassium 4.5 mmol/L (3.6-5.2) 08/12/18 11:00 Vancomycin Trough 5.6 ug/mL (5.0-10.0) 08/16/18 08:47 Random Vancomycin < 5.0 ug/mL 08/13/18 04:20 Influenza Typ A,B (EIA) Negative for flu a/b (NEGATIVE) 08/12/18 11:20 Ur L.pneumophila Ag Negative (NEGATIVE) 08/12/18 20:45 Mycoplasma pneumon IgG <=0.90 (<=0.90) 08/13/18 14:12 Mycoplasma pneumon IgM 155 U/mL (<770) 08/13/18 14:12 Attending/Attestation - Attestation I have personally seen and examined this patient.: Yes I have fully participated in the care of the patient.: Yes I have reviewed all pertinent clinical information, including history, physical exam and plan: Yes Notes (Text): 08/19/18 19:00 Patient seen and examined with resident. Case discussed and agreed with assessment and plan of management.
== END 2018-08-19 15:00 | disposition home or self-care (01) | DRG 871 ==
LOC: H.ER 10:16 → H.ERHOLD 11:43 → H.TEL 13:37
PROC: 5A09457 Assistance with Respiratory Ventilation, 24-96 Consecutive Hours, Continuous Positive Airway Pressure (ICD-10-PCS; principal; 2018-08-12)
DX: A41.9 Sepsis, unspecified organism (principal); J96.01 Acute respiratory failure with hypoxia; J96.02 Acute respiratory failure with hypercapnia; J18.9 Pneumonia, unspecified organism; E66.2 Morbid (severe) obesity with alveolar hypoventilation; Z68.41 Body mass index [BMI] 40.0-44.9, adult; I12.9 Hypertensive chronic kidney disease with stage 1 through stage 4 chronic kidney disease, or unspecified chronic kidney disease; N18.9 Chronic kidney disease, unspecified; F32.9 Major depressive disorder, single episode, unspecified; E11.22 Type 2 diabetes mellitus with diabetic chronic kidney disease; M19.90 Unspecified osteoarthritis, unspecified site; Z79.84 Long term (current) use of oral hypoglycemic drugs; Z79.82 Long term (current) use of aspirin; Z87.891 Personal history of nicotine dependence